=== PATIENT | male | born 1940 | race Caucasian/White ===

== ENCOUNTER 2016-09-27 09:52 | Observation (INO) | payer MEDICARE, BC ==
[2016-09-27] MEDS ORDERED: Pantoprazole IV* 40 MG IV ONE (10:19)
[2016-09-27 10:42] LABS: Hematocrit 45 % (42-52); Hemoglobin 14.8 g/dl (14.0-18.0); Mean Corpuscular HGB Conc 33 g/dl (31-36); Mean Corpuscular Hemoglobin 31 pg (27-31); Mean Corpuscular Volume 93 fL (80-94); Mean Platelet Volume 8 um3 (7.4-10.4); Red Blood Count 4.84 10^6/ul (4.0-5.4); Red Cell Distribution Width 14 % (10.5-15); White Blood Count 7.2 10^3/ul (3.5-10.8)
[2016-09-27 10:57] LABS: Albumin 3.8 g/dL (3.2-5.2); BUN/Creatinine Ratio 27.8 (8-20); C Reactive Protein 3.15 mg/L (< 5.00); Calcium 9.2 mg/dL (8.6-10.3); EGFR African American 122.3 (>60); EGFR Non-African American 95.1 (>60); Globulin 3.4 g/dL (2-4); Potassium 4.2 mmol/L (3.5-5.0); Total Protein 7.2 g/dL (6.4-8.9)
[2016-09-27] MEDS: NS 0.9% 1000 ML* 1,000 ML IV SCH ×3 (11:10→23:45)
--- NOTE | 2016-09-27 12:11 | ED ---
Jennifer Hatfield Matthew, scribed for Billy Zambrano MD on 09/27/16 at 1023 . GI/ HPI - HPI Summary HPI Summary: A 76 y/o male presents to the ED for rectal bleeding that started yesterday at 14:00. The patient went to eat after the first episode and had another bout of blood in the stool. Throughout the tonight, he had three episodes and another this morning. The BM is described as dark red w/o stool. He denies abdominal pain, fever, chills, lightheadedness, SOB, and urinary symptoms. He is currently on Coumadin. - History of Current Complaint Chief Complaint: EDGIBleed Time Seen by Provider: 09/27/16 10:09 Stated Complaint: RECTAL BLEEDING Hx Obtained From: Patient Onset/Duration: Started Days Ago, Atraumatic, Still Present Timing: Constant Severity: Moderate Current Severity: Moderate Vaginal Bleeding Description: Dark Red Pain Intensity: 0 Associated Signs and Symptoms: Positive: Blood w/Stool. Negative: Fever, Chills , Lightheadedness, Abdominal Pain, UTI Symptoms - Allergy/Home Medications Allergies/Adverse Reactions: Allergies Allergy/AdvReac Type Severity Reaction Status Date / Time No Known Allergies Allergy Verified 08/16/15 09:23 PMH/Surg Hx/FS Hx/Imm Hx Endocrine/Hematology History: Reports: Hx Anticoagulant Therapy, Hx Diabetes - II Denies: Hx Thyroid Disease Cardiovascular History: Reports: Hx Angina, Hx Cardiac Arrest, Hx Coronary Artery Disease, Hx Deep Vein Thrombosis, Hx Hypertension Denies: Hx Pacemaker/ICD Respiratory History: Denies: Hx Asthma, Hx Chronic Obstructive Pulmonary Disease (COPD) GI History: Reports: Other GI Disorders - POLYP History: Denies: Hx Renal Disease Musculoskeletal History: Comment Only: Other Musculoskeletal History - HIP REPLACEMENT, NECK INJURY Sensory History: Reports: Hx Contacts or Glasses, Hx Vision Problem, Hx Hearing Aid - DOESN'T WEAR Opthamlomology History: Reports: Hx Contacts or Glasses, Hx Vision Problem Neurological History: Denies: Hx Dementia, Hx Seizures Psychiatric History: Denies: Hx Panic Disorder, Hx Substance Abuse - Surgical History Surgery Procedure, Year, and Place: 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 CATARACTS WITH LENS TRANSPLANT;. RONAK FILTER SURGERY( 1.5 T ONLY);. PROSTATE;. BILATERAL HIPS REPLACEMENT;. 2 KNEE SURGERYS;. RIGHT ARM (UMBRELLA) FOR CLOT, HEART CATHS/ANGIOS (NO STENTS); Hx Anesthesia Reactions: No - Immunization History Date of Tetanus Vaccine: Unknown Date of Influenza Vaccine: Fall 2014 Infectious Disease History: No Infectious Disease History: Reports: Hx of Known/Suspected MRSA Denies: Hx Clostridium Difficile, Hx Hepatitis, Hx Human Immunodeficiency Virus (HIV), Hx Shingles, Hx Tuberculosis, Traveled Outside the [place] in Last 30 Days - Family History Family History: No FHx of [place] - Social History Alcohol Use: None Substance Use Type: Reports: None Smoking Status (MU): Never Smoked Tobacco Have You Smoked in the Last Year: No Review of Systems Constitutional: Negative Negative: Fever, Chills Eyes: Negative ENT: Negative Cardiovascular: Negative Respiratory: Negative Negative: Shortness Of Breath Gastrointestinal: Negative Negative: Abdominal Pain Genitourinary: Other - blood w/ stool - dark red Musculoskeletal: Negative Skin: Negative Neurological: Negative Psychological: Normal All Other Systems Reviewed And Are Negative: Yes Physical Exam Triage Information Reviewed: Yes Vital Signs On Initial Exam: Initial Vitals Temp Pulse Resp BP Pulse Ox 99.2 F 91 20 162/81 97 09/27/16 09:53 09/27/16 09:53 09/27/16 09:53 09/27/16 09:53 09/27/16 09:53 Vital Signs Reviewed: Yes Appearance: Positive: Well-Appearing, No Pain Distress Skin: Positive: Warm, Skin Color Reflects Adequate Perfusion, Dry Head/Face: Positive: Normal Head/Face Inspection ENT: Positive: Normal ENT inspection Neck: Positive: Supple, Nontender Cardiovascular: Positive: RRR Abdomen Description: Positive: Nontender, Soft Musculoskeletal: Positive: Normal, Strength/ROM Intact Neurological: Positive: Normal, Sensory/Motor Intact, Alert, Oriented to Person Place, Time Psychiatric: Positive: Affect/Mood Appropriate Diagnostics - Vital Signs Vital Signs Temp Pulse Resp BP Pulse Ox 09/27/16 09:53 99.2 F 91 20 162/81 97 - Laboratory Lab Results: Lab Results 09/27/16 09/27/16 09/27/16 Range/Units 10:30 10:30 10:30 WBC 7.2 (3.5-10.8) 10^3/ul RBC 4.84 (4.0-5.4) 10^6/ul Hgb 14.8 (14.0-18.0) g/dl Hct 45 (42-52) % MCV 93 (80-94) fL MCH 31 (27-31) pg MCHC 33 (31-36) g/dl RDW 14 (10.5-15) % Plt Count 167 (150-450) 10^3/ul MPV 8 (7.4-10.4) um3 Neut % (Auto) 64.3 (38-83) % Lymph % (Auto) 24.8 L (25-47) % Turner % (Auto) 7.9 (1-9) % Eos % (Auto) 2.2 (0-6) % Baso % (Auto) 0.8 (0-2) % Absolute Neuts (auto) 4.6 (1.5-7.7) 10^3/ul Absolute Lymphs (auto) 1.8 (1.0-4.8) 10^3/ul Absolute Monos (auto) 0.6 (0-0.8) 10^3/ul Absolute Eos (auto) 0.2 (0-0.6) 10^3/ul Absolute Basos (auto) 0.1 (0-0.2) 10^3/ul Absolute Nucleated RBC 0 10^3/ul Nucleated RBC % 0 INR (Anticoag Therapy) 1.81 H (0.89-1.11) APTT 36.7 H (26.0-36.3) seconds Sodium 136 (133-145) mmol/L Potassium 4.2 (3.5-5.0) mmol/L Chloride 103 (101-111) mmol/L Carbon Dioxide 28 (22-32) mmol/L Anion Gap 5 (2-11) mmol/L BUN 22 (6-24) mg/dL Creatinine 0.79 (0.67-1.17) mg/dL Est GFR ( Amer) 122.3 (>60) Est GFR (Non-Af Amer) 95.1 (>60) BUN/Creatinine Ratio 27.8 H (8-20) Glucose 113 H (70-100) mg/dL Lactic Acid (0.5-2.0) mmol/L Calcium 9.2 (8.6-10.3) mg/dL Total Bilirubin 1.00 (0.2-1.0) mg/dL AST 18 (13-39) U/L ALT 11 (7-52) U/L Alkaline Phosphatase 67 (34-104) U/L C-Reactive Protein 3.15 (< 5.00) mg/L B-Natriuretic Peptide ( - 100) pg/mL Total Protein 7.2 (6.4-8.9) g/dL Albumin 3.8 (3.2-5.2) g/dL Globulin 3.4 (2-4) g/dL Albumin/Globulin Ratio 1.1 (1-3) Lipase 29 (11.0-82.0) U/L Blood Type Antibody Screen 09/27/16 09/27/16 09/27/16 Range/Units 10:30 10:30 10:30 WBC (3.5-10.8) 10^3/ul RBC (4.0-5.4) 10^6/ul Hgb (14.0-18.0) g/dl Hct (42-52) % MCV (80-94) fL MCH (27-31) pg MCHC (31-36) g/dl RDW (10.5-15) % Plt Count (150-450) 10^3/ul MPV (7.4-10.4) um3 Neut % (Auto) (38-83) % Lymph % (Auto) (25-47) % Turner % (Auto) (1-9) % Eos % (Auto) (0-6) % Baso % (Auto) (0-2) % Absolute Neuts (auto) (1.5-7.7) 10^3/ul Absolute Lymphs (auto) (1.0-4.8) 10^3/ul Absolute Monos (auto) (0-0.8) 10^3/ul Absolute Eos (auto) (0-0.6) 10^3/ul Absolute Basos (auto) (0-0.2) 10^3/ul Absolute Nucleated RBC 10^3/ul Nucleated RBC % INR (Anticoag Therapy) (0.89-1.11) APTT (26.0-36.3) seconds Sodium (133-145) mmol/L Potassium (3.5-5.0) mmol/L Chloride (101-111) mmol/L Carbon Dioxide (22-32) mmol/L Anion Gap (2-11) mmol/L BUN (6-24) mg/dL Creatinine (0.67-1.17) mg/dL Est GFR ( Amer) (>60) Est GFR (Non-Af Amer) (>60) BUN/Creatinine Ratio (8-20) Glucose (70-100) mg/dL Lactic Acid 1.2 (0.5-2.0) mmol/L Calcium (8.6-10.3) mg/dL Total Bilirubin (0.2-1.0) mg/dL AST (13-39) U/L ALT (7-52) U/L Alkaline Phosphatase (34-104) U/L C-Reactive Protein (< 5.00) mg/L B-Natriuretic Peptide 155 H ( - 100) pg/mL Total Protein (6.4-8.9) g/dL Albumin (3.2-5.2) g/dL Globulin (2-4) g/dL Albumin/Globulin Ratio (1-3) Lipase (11.0-82.0) U/L Blood Type A Negative Antibody Screen Negative Result Diagrams: 09/27/16 10:30 09/27/16 10:30 Lab Statement: Any lab studies that have been ordered have been reviewed, and results considered in the medical decision making process. GIGU Course/Dx - Course Assessment/Plan: ADMIT STABLE HOSPITALIST. - Diagnoses Provider Diagnoses: GI bleed, Elevated INR - Physician Notifications Discussed Care Of Patient With: Dr. Dugan (Hospitalist) at 11:15 -- Notified of patient's history and will admit the patient. Discharge - Discharge Plan Condition: Stable Disposition: ADMITTED TO [facility] Referrals: Casandra Dixon MD [Primary Care Provider] - The documentation as recorded by the Jennifer garza Matthew accurately reflects the service I personally performed and the decisions made by , Billy Zambrano MD.
[2016-09-27] MEDS ORDERED: Aspirin Low Dose CHEW TAB* 81 MG ONE (12:18)
[2016-09-27] MEDS ORDERED: Sotalol TAB* 80 MG ONE (12:18)
[2016-09-27] MEDS: Aspirin Low Dose CHEW TAB* 81 MG PO SCH (12:21)
[2016-09-27] MEDS: Sotalol TAB* 80 MG PO SCH ×2 (12:21→21:26)
--- NOTE | 2016-09-27 12:48 | ADMNOTE ---
Subjective Date of Service: 09/27/16 Interval History: ADMISSION HISTORY AND PHYSICAL EXAM: Allergies Allergy/AdvReac Type Severity Reaction Status Date / Time No Known Allergies Allergy Verified 08/16/15 09:23 Home Medications Medication Instructions Recorded Confirmed Type Aspirin Low Dose CHEW TAB* 81 mg PO DAILY 11/30/12 09/27/16 History [Aspirin Low Dose TAB*] Simvastatin TAB(NF) [Zocor 20 MG 40 mg PO BEDTIME 11/30/12 09/27/16 History (NF)] Sotalol TAB* [Betapace TAB*] 80 mg PO BID 11/30/12 09/27/16 History Warfarin TAB(*) [Coumadin TAB(*)] 7.5 mg PO MOWEFR 11/30/12 09/27/16 History metFORMIN* [Glucophage*] 500 mg PO BID 11/30/12 09/27/16 History Acetaminophen [Tylenol Extra 500 mg PO Q6H PRN 10/04/13 09/27/16 History Strength] Sildenafil (NF) [Viagra (NF)] 50 mg PO ONCE PRN 09/27/16 09/27/16 History Valsartan TAB* [Diovan TAB*] 160 mg PO DAILY 09/27/16 09/27/16 History Warfarin TAB(*) [Coumadin TAB(*)] 5 mg PO TUTH 09/27/16 09/27/16 History HPI: Patient was in his usual state of health until yesterday AM. He went to a pancake breakfast at the fire station. After that he had 6 loose BM's with blood through the rest of the day. He has not had a BM Review of Systems - Measurements Intake and Output: Intake and Output Last 24 Hours 09/25/16 09/26/16 09/27/16 09/28/16 06:59 06:59 06:59 06:59 Weight 227 lb Objective Active Medications: Sodium Chloride (Ns 0.9% 1000 Ml*) 1,000 mls @ 150 mls/hr IV PER RATE [facility] Last Admin: 09/27/16 11:10 Dose: 150 mls/hr Vital Signs 09/27/16 09/27/16 09:53 10:18 Temperature 99.2 F Pulse Rate 91 96 Respiratory 20 Rate Blood Pressure 162/81 (mmHg) O2 Sat by Pulse 97 94 Oximetry Result Diagrams: 09/27/16 10:30 09/27/16 10:30 Assess/Plan/Problems-Billing Assessment:
--- NOTE | 2016-09-27 12:54 | ADMNOTE ---
Subjective Date of Service: 09/27/16 Interval History: ADMISSION HISTORY AND PHYSICAL EXAM: Allergies Allergy/AdvReac Type Severity Reaction Status Date / Time No Known Allergies Allergy Verified 08/16/15 09:23 Home Medications Medication Instructions Recorded Confirmed Type Aspirin Low Dose CHEW TAB* 81 mg PO DAILY 11/30/12 09/27/16 History [Aspirin Low Dose TAB*] Simvastatin TAB(NF) [Zocor 20 MG 40 mg PO BEDTIME 11/30/12 09/27/16 History (NF)] Sotalol TAB* [Betapace TAB*] 80 mg PO BID 11/30/12 09/27/16 History Warfarin TAB(*) [Coumadin TAB(*)] 7.5 mg PO MOWEFR 11/30/12 09/27/16 History metFORMIN* [Glucophage*] 500 mg PO BID 11/30/12 09/27/16 History Acetaminophen [Tylenol Extra 500 mg PO Q6H PRN 10/04/13 09/27/16 History Strength] Sildenafil (NF) [Viagra (NF)] 50 mg PO ONCE PRN 09/27/16 09/27/16 History Valsartan TAB* [Diovan TAB*] 160 mg PO DAILY 09/27/16 09/27/16 History Warfarin TAB(*) [Coumadin TAB(*)] 5 mg PO TUTH 09/27/16 09/27/16 History HPI: Patient was in his usual state of health until yesterday AM. He went to a pancake breakfast at the [employer] station. After that he had 6 loose BM's with blood through the rest of the day. He has not had a BM so far today. He did not eat breakfast or take his AM meds today. He takes warfarin in the evening. Family History: Findings - Unremarkable. Social History: Findings - Quit smoking many years ago. No alcohol abuse. Lives with his who is his SDM. 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 Hx atrial fib, CAD, DVT, HTN, DM Review of Systems - Measurements Intake and Output: Intake and Output Last 24 Hours 09/25/16 09/26/16 09/27/16 09/28/16 06:59 06:59 06:59 06:59 Weight 227 lb - Review of Systems Constitutional Symptoms: Negative: Weight Gain, Weight Loss, Weakness, Fatigue, Fever, Night Sweats, Unexplained Falls, Other Dermatology: Positive: Normal HEENT: Positive: Normal Eyes: Positive: Normal Thyroid: Positive: Normal Pulmonary: Positive: Normal Cardiology: Positive: Normal Gastroenterology: Positive: Blood in Stools Genital - Urinary: Positive: Normal Musculoskeletal: Negative: Joint Pain, Joint Stiffness, Arthritis, Osteoporosis, Low Back Pain , Sciatica, Joint Deformities, Kyphoscoliosis, Other Endocrinology: Positive: Diabetes Mellitus Hematologic/Lymphatic: Negative: Anemia, Easy Brusing, Hx Leukemia, Hx Lymphoma, Use of Anticoagulant, Use of Antiplatelet Drugs, Other Neurology: Positive: Normal Psychiatry: Positive: Normal Allergic/Immunologic: Negative: Hx Anaphylaxis, Hx Angioedema, Hx Environmental, Hx Seasonal, Athsma, Hx HIV, Immunocompromise, Swollen Glands LymphNodes, Other Objective Active Medications: Aspirin (Aspirin Low Dose Tab*) 81 mg PO DAILY [facility] Last Admin: 09/27/16 12:21 Dose: 81 mg Atorvastatin Calcium (Lipitor*) 20 mg PO BEDTIME [facility] Sodium Chloride (Ns 0.9% 1000 Ml*) 1,000 mls @ 150 mls/hr IV PER RATE [facility] Last Admin: 09/27/16 11:10 Dose: 150 mls/hr Sotalol HCl (Betapace Tab*) 80 mg PO BID [facility] Last Admin: 09/27/16 12:21 Dose: 80 mg Valsartan (Diovan Tab*) 160 mg PO DAILY [facility] Warfarin Sodium (Coumadin Tab(*)) 5 mg PO TuTh@1700 [facility] PRN Reason: Protocol Warfarin Sodium (Coumadin Tab(*)) 7.5 mg PO MoWeFr@1700 [facility] PRN Reason: Protocol Vital Signs 09/27/16 09/27/16 09/27/16 09:53 10:18 10:30 Temperature 99.2 F Pulse Rate 91 96 Respiratory 20 Rate Blood Pressure 162/81 120/73 (mmHg) O2 Sat by Pulse 97 94 Oximetry 09/27/16 09/27/16 09/27/16 11:00 11:30 12:00 Temperature Pulse Rate 98 90 90 Respiratory Rate Blood Pressure 144/96 128/77 155/94 (mmHg) O2 Sat by Pulse 96 95 96 Oximetry Oxygen Devices in Use Now: None Appearance: Alert, supine in bed. In good spirits. Looks comfortable. Eyes: No Scleral Icterus Ears/Nose/Mouth/Throat: Clear Oropharnyx, Mucous Membranes Moist Neck: NL Appearance and Movements; NL JVP, No Thyroid Enlargement, Masses Respiratory: Symmetrical Chest Expansion and Respiratory Effort, Clear to Auscultation, Clear to Percussion Cardiovascular: NL Sounds; No Murmurs; No JVD, No Edema, - - irreg Abdominal: NL Sounds; No Tenderness; No Distention, No Hepatosplenomegaly, - Extremities: No Edema, No Clubbing, Cyanosis, - Skin: No Rash or Ulcers, No Nodules or Sclerosis, - Result Diagrams: 09/27/16 10:30 09/27/16 10:30 Additional Lab and Data: Lab Results 09/27/16 09/27/16 09/27/16 Range/Units 10:30 10:30 10:30 WBC 7.2 (3.5-10.8) 10^3/ul RBC 4.84 (4.0-5.4) 10^6/ul Hgb 14.8 (14.0-18.0) g/dl Hct 45 (42-52) % MCV 93 (80-94) fL MCH 31 (27-31) pg MCHC 33 (31-36) g/dl RDW 14 (10.5-15) % Plt Count 167 (150-450) 10^3/ul MPV 8 (7.4-10.4) um3 Neut % (Auto) 64.3 (38-83) % Lymph % (Auto) 24.8 L (25-47) % Caldwell % (Auto) 7.9 (1-9) % Eos % (Auto) 2.2 (0-6) % Baso % (Auto) 0.8 (0-2) % Absolute Neuts (auto) 4.6 (1.5-7.7) 10^3/ul Absolute Lymphs (auto) 1.8 (1.0-4.8) 10^3/ul Absolute Monos (auto) 0.6 (0-0.8) 10^3/ul Absolute Eos (auto) 0.2 (0-0.6) 10^3/ul Absolute Basos (auto) 0.1 (0-0.2) 10^3/ul Absolute Nucleated RBC 0 10^3/ul Nucleated RBC % 0 INR (Anticoag Therapy) 1.81 H (0.89-1.11) APTT 36.7 H (26.0-36.3) seconds Sodium 136 (133-145) mmol/L Potassium 4.2 (3.5-5.0) mmol/L Chloride 103 (101-111) mmol/L Carbon Dioxide 28 (22-32) mmol/L Anion Gap 5 (2-11) mmol/L BUN 22 (6-24) mg/dL Creatinine 0.79 (0.67-1.17) mg/dL Est GFR ( Amer) 122.3 (>60) Est GFR (Non-Af Amer) 95.1 (>60) BUN/Creatinine Ratio 27.8 H (8-20) Glucose 113 H (70-100) mg/dL Lactic Acid (0.5-2.0) mmol/L Calcium 9.2 (8.6-10.3) mg/dL Total Bilirubin 1.00 (0.2-1.0) mg/dL AST 18 (13-39) U/L ALT 11 (7-52) U/L Alkaline Phosphatase 67 (34-104) U/L C-Reactive Protein 3.15 (< 5.00) mg/L B-Natriuretic Peptide ( - 100) pg/mL Total Protein 7.2 (6.4-8.9) g/dL Albumin 3.8 (3.2-5.2) g/dL Globulin 3.4 (2-4) g/dL Albumin/Globulin Ratio 1.1 (1-3) Lipase 29 (11.0-82.0) U/L Blood Type Antibody Screen 09/27/16 09/27/16 09/27/16 Range/Units 10:30 10:30 10:30 WBC (3.5-10.8) 10^3/ul RBC (4.0-5.4) 10^6/ul Hgb (14.0-18.0) g/dl Hct (42-52) % MCV (80-94) fL MCH (27-31) pg MCHC (31-36) g/dl RDW (10.5-15) % Plt Count (150-450) 10^3/ul MPV (7.4-10.4) um3 Neut % (Auto) (38-83) % Lymph % (Auto) (25-47) % [place]dwell % (Auto) (1-9) % Eos % (Auto) (0-6) % Baso % (Auto) (0-2) % Absolute Neuts (auto) (1.5-7.7) 10^3/ul Absolute Lymphs (auto) (1.0-4.8) 10^3/ul Absolute Monos (auto) (0-0.8) 10^3/ul Absolute Eos (auto) (0-0.6) 10^3/ul Absolute Basos (auto) (0-0.2) 10^3/ul Absolute Nucleated RBC 10^3/ul Nucleated RBC % INR (Anticoag Therapy) (0.89-1.11) APTT (26.0-36.3) seconds Sodium (133-145) mmol/L Potassium (3.5-5.0) mmol/L Chloride (101-111) mmol/L Carbon Dioxide (22-32) mmol/L Anion Gap (2-11) mmol/L BUN (6-24) mg/dL Creatinine (0.67-1.17) mg/dL Est GFR ( Amer) (>60) Est GFR (Non-Af Amer) (>60) BUN/Creatinine Ratio (8-20) Glucose (70-100) mg/dL Lactic Acid 1.2 (0.5-2.0) mmol/L Calcium (8.6-10.3) mg/dL Total Bilirubin (0.2-1.0) mg/dL AST (13-39) U/L ALT (7-52) U/L Alkaline Phosphatase (34-104) U/L C-Reactive Protein (< 5.00) mg/L B-Natriuretic Peptide 155 H ( - 100) pg/mL Total Protein (6.4-8.9) g/dL Albumin (3.2-5.2) g/dL Globulin (2-4) g/dL Albumin/Globulin Ratio (1-3) Lipase (11.0-82.0) U/L Blood Type A Negative Antibody Screen Negative Assess/Plan/Problems-Billing Assessment: - Patient Problems (1) Rectal bleeding Current Visit: Yes Status: Acute Code(s): K62.5 - HEMORRHAGE OF ANUS AND RECTUM SNOMED Code(s): 84851458 Comment: Likely low volume of blood loss. Had colonoscopy 02/19/11, consider repeat as outpt. CBC 1500 hrs 09/27, 0600 09/28. Continue ASA, warfarin. (2) Atrial fibrillation Current Visit: Yes Status: Acute Code(s): I48.91 - UNSPECIFIED ATRIAL FIBRILLATION SNOMED Code(s): 01367124 Comment: Continue sotalol, catch up today with both doses. Continue usual dose warfarin. (3) HTN (hypertension) Current Visit: Yes Status: Acute Code(s): I10 - ESSENTIAL (PRIMARY) HYPERTENSION SNOMED Code(s): 84806821 Comment: Continue valsartan, sotalol. (4) CAD (coronary artery disease) Current Visit: Yes Status: Acute Code(s): I25.10 - ATHSCL HEART DISEASE OF [place] CORONARY ARTERY W/O ANG PCTRS SNOMED Code(s): 14241593 Comment: Continue ASA, statin.
[2016-09-27 16:32] LABS: Hematocrit 44 % (42-52); Hemoglobin 14.3 g/dl (14.0-18.0); Mean Corpuscular HGB Conc 33 g/dl (31-36); Mean Corpuscular Hemoglobin 31 pg (27-31); Mean Corpuscular Volume 94 fL (80-94); Mean Platelet Volume 9 um3 (7.4-10.4); Red Blood Count 4.63 10^6/ul (4.0-5.4); Red Cell Distribution Width 14 % (10.5-15); White Blood Count 7.2 10^3/ul (3.5-10.8)
[2016-09-27] MEDS ORDERED: Warfarin TAB(*) 5 MG PO SCH (17:00)
[2016-09-27] MEDS ORDERED: Atorvastatin* 20 MG TAB PO SCH (21:00)
[2016-09-28 04:21] LABS: Urine Bilirubin Negative (Negative); Urine Glucose 1+(50 mg/dL) (Negative); Urine Nitrite Negative (Negative)
[2016-09-28] MEDS: NS 0.9% 1000 ML* 1,000 ML IV SCH (06:27)
[2016-09-28 06:42] LABS: Hematocrit 39 % (42-52); Hemoglobin 12.9 g/dl (14.0-18.0); Mean Corpuscular HGB Conc 33 g/dl (31-36); Mean Corpuscular Hemoglobin 31 pg (27-31); Mean Corpuscular Volume 92 fL (80-94); Mean Platelet Volume 9 um3 (7.4-10.4); Red Blood Count 4.18 10^6/ul (4.0-5.4); Red Cell Distribution Width 14 % (10.5-15); White Blood Count 6.5 10^3/ul (3.5-10.8)
[2016-09-28 08:50] VITALS: BP 122/77
--- NOTE | 2016-09-28 08:50 | DCNOTE ---
Subjective Date of Service: 09/28/16 Interval History: BM yesterday was brown. None today so far. No c/o, anxious to go home. Family History: Findings - Unremarkable. Social History: Findings - Quit smoking many years ago. No alcohol abuse. Lives with his who is his SDM. 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 Hx atrial fib, CAD, DVT, HTN, DM Objective Active Medications: Aspirin (Aspirin Low Dose Tab*) 81 mg PO DAILY [facility] Last Admin: 09/27/16 12:21 Dose: 81 mg Atorvastatin Calcium (Lipitor*) 20 mg PO BEDTIME [facility] Last Admin: 09/27/16 21:30 Dose: 20 mg Sodium Chloride (Ns 0.9% 1000 Ml*) 1,000 mls @ 150 mls/hr IV PER RATE [facility] Last Admin: 09/28/16 06:27 Dose: 150 mls/hr Sotalol HCl (Betapace Tab*) 80 mg PO BID [facility] Last Admin: 09/27/16 21:26 Dose: Not Given Valsartan (Diovan Tab*) 160 mg PO DAILY [facility] Warfarin Sodium (Coumadin Tab(*)) 5 mg PO TuTh@1700 [facility] PRN Reason: Protocol Warfarin Sodium (Coumadin Tab(*)) 7.5 mg PO MoWeFr@1700 [facility] PRN Reason: Protocol Last Admin: 09/27/16 17:33 Dose: 7.5 mg Vital Signs 09/27/16 09/27/16 09/27/16 13:00 13:30 15:05 Temperature 97.8 F Pulse Rate 85 85 58 Respiratory 18 Rate Blood Pressure 124/94 130/86 105/71 (mmHg) O2 Sat by Pulse 96 94 99 Oximetry 09/27/16 09/27/16 09/28/16 15:22 19:17 00:28 Temperature 97.3 F 98.1 F 98.1 F Pulse Rate 69 49 69 Respiratory 16 16 16 Rate Blood Pressure 84/62 100/56 85/43 (mmHg) O2 Sat by Pulse 96 97 96 Oximetry 09/28/16 09/28/16 04:04 08:00 Temperature 97.8 F Pulse Rate 70 Respiratory 16 16 Rate Blood Pressure 120/61 (mmHg) O2 Sat by Pulse 98 Oximetry Oxygen Devices in Use Now: None Appearance: Alert, in a chair. In good spirits. Looks comfortable. Eyes: No Scleral Icterus Abdominal: - - Rectal exam: No external lesions. No palpable mass. Brown stool on glove tip. Extremities: No Edema, No Clubbing, Cyanosis, - Skin: No Rash or Ulcers, No Nodules or Sclerosis, - Neurological: Alert and Oriented x 3, NL Sensation Result Diagrams: 09/28/16 06:06 09/27/16 10:30 Additional Lab and Data: Lab Results 09/27/16 09/27/16 09/27/16 Range/Units 10:30 10:30 10:30 WBC 7.2 (3.5-10.8) 10^3/ul RBC 4.84 (4.0-5.4) 10^6/ul Hgb 14.8 (14.0-18.0) g/dl Hct 45 (42-52) % MCV 93 (80-94) fL MCH 31 (27-31) pg MCHC 33 (31-36) g/dl RDW 14 (10.5-15) % Plt Count 167 (150-450) 10^3/ul MPV 8 (7.4-10.4) um3 Neut % (Auto) 64.3 (38-83) % Lymph % (Auto) 24.8 L (25-47) % Hendricks % (Auto) 7.9 (1-9) % Eos % (Auto) 2.2 (0-6) % Baso % (Auto) 0.8 (0-2) % Absolute Neuts (auto) 4.6 (1.5-7.7) 10^3/ul Absolute Lymphs (auto) 1.8 (1.0-4.8) 10^3/ul Absolute Monos (auto) 0.6 (0-0.8) 10^3/ul Absolute Eos (auto) 0.2 (0-0.6) 10^3/ul Absolute Basos (auto) 0.1 (0-0.2) 10^3/ul Absolute Nucleated RBC 0 10^3/ul Nucleated RBC % 0 INR (Anticoag Therapy) 1.81 H (0.89-1.11) APTT 36.7 H (26.0-36.3) seconds Sodium 136 (133-145) mmol/L Potassium 4.2 (3.5-5.0) mmol/L Chloride 103 (101-111) mmol/L Carbon Dioxide 28 (22-32) mmol/L Anion Gap 5 (2-11) mmol/L BUN 22 (6-24) mg/dL Creatinine 0.79 (0.67-1.17) mg/dL Est GFR ( Amer) 122.3 (>60) Est GFR (Non-Af Amer) 95.1 (>60) BUN/Creatinine Ratio 27.8 H (8-20) Glucose 113 H (70-100) mg/dL Lactic Acid (0.5-2.0) mmol/L Calcium 9.2 (8.6-10.3) mg/dL Total Bilirubin 1.00 (0.2-1.0) mg/dL AST 18 (13-39) U/L ALT 11 (7-52) U/L Alkaline Phosphatase 67 (34-104) U/L C-Reactive Protein 3.15 (< 5.00) mg/L B-Natriuretic Peptide ( - 100) pg/mL Total Protein 7.2 (6.4-8.9) g/dL Albumin 3.8 (3.2-5.2) g/dL Globulin 3.4 (2-4) g/dL Albumin/Globulin Ratio 1.1 (1-3) Lipase 29 (11.0-82.0) U/L Blood Type Antibody Screen 09/27/16 09/27/16 09/27/16 Range/Units 10:30 10:30 10:30 WBC (3.5-10.8) 10^3/ul RBC (4.0-5.4) 10^6/ul Hgb (14.0-18.0) g/dl Hct (42-52) % MCV (80-94) fL MCH (27-31) pg MCHC (31-36) g/dl RDW (10.5-15) % Plt Count (150-450) 10^3/ul MPV (7.4-10.4) um3 Neut % (Auto) (38-83) % Lymph % (Auto) (25-47) % Hendricks % (Auto) (1-9) % Eos % (Auto) (0-6) % Baso % (Auto) (0-2) % Absolute Neuts (auto) (1.5-7.7) 10^3/ul Absolute Lymphs (auto) (1.0-4.8) 10^3/ul Absolute Monos (auto) (0-0.8) 10^3/ul Absolute Eos (auto) (0-0.6) 10^3/ul Absolute Basos (auto) (0-0.2) 10^3/ul Absolute Nucleated RBC 10^3/ul Nucleated RBC % INR (Anticoag Therapy) (0.89-1.11) APTT (26.0-36.3) seconds Sodium (133-145) mmol/L Potassium (3.5-5.0) mmol/L Chloride (101-111) mmol/L Carbon Dioxide (22-32) mmol/L Anion Gap (2-11) mmol/L BUN (6-24) mg/dL Creatinine (0.67-1.17) mg/dL Est GFR ( Amer) (>60) Est GFR (Non-Af Amer) (>60) BUN/Creatinine Ratio (8-20) Glucose (70-100) mg/dL Lactic Acid 1.2 (0.5-2.0) mmol/L Calcium (8.6-10.3) mg/dL Total Bilirubin (0.2-1.0) mg/dL AST (13-39) U/L ALT (7-52) U/L Alkaline Phosphatase (34-104) U/L C-Reactive Protein (< 5.00) mg/L B-Natriuretic Peptide 155 H ( - 100) pg/mL Total Protein (6.4-8.9) g/dL Albumin (3.2-5.2) g/dL Globulin (2-4) g/dL Albumin/Globulin Ratio (1-3) Lipase (11.0-82.0) U/L Blood Type A Negative Antibody Screen Negative Microbiology and Other Data: Microbiology 09/27/16 14:32 Stool Gross Appearance - Final Stool Stool Occult Blood (GORDON) - Final Assess/Plan/Problems-Billing Assessment: - Patient Problems (1) Rectal bleeding Current Visit: Yes Status: Acute Code(s): K62.5 - HEMORRHAGE OF ANUS AND RECTUM SNOMED Code(s): 62503371 Comment: Likely low volume of blood loss. Had colonoscopy 02/19/11, consider repeat as outpt. Decrease in hgb c/w fluid administration. Continue ASA, warfarin. Fup Dr. Dixon. Pt advised to discuss outpt colonoscopy with Dr. Maharaj (2) Atrial fibrillation Current Visit: Yes Status: Acute Code(s): I48.91 - UNSPECIFIED ATRIAL FIBRILLATION SNOMED Code(s): 79937383 Comment: Continue sotalol, catch up today with both doses. Continue usual dose warfarin. (3) HTN (hypertension) Current Visit: Yes Status: Acute Code(s): I10 - ESSENTIAL (PRIMARY) HYPERTENSION SNOMED Code(s): 85554911 Comment: Continue valsartan, sotalol. (4) CAD (coronary artery disease) Current Visit: Yes Status: Acute Code(s): I25.10 - ATHSCL HEART DISEASE OF [place] CORONARY ARTERY W/O ANG PCTRS SNOMED Code(s): 51085359 Comment: Continue ASA, statin. Status and Disposition: Discharge now. Fup Dr. Dixon.
--- NOTE | 2016-09-28 08:57 | DCNOTE ---
Subjective Date of Service: 09/28/16 Interval History: This is an addendum to the earlier noted today. Family History: Findings - Unremarkable. Social History: Findings - Quit smoking many years ago. No alcohol abuse. Lives with his who is his SDM. 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 Hx atrial fib, CAD, DVT, HTN, DM Objective Active Medications: Aspirin (Aspirin Low Dose Tab*) 81 mg PO DAILY [facility] Last Admin: 09/27/16 12:21 Dose: 81 mg Atorvastatin Calcium (Lipitor*) 20 mg PO BEDTIME [facility] Last Admin: 09/27/16 21:30 Dose: 20 mg Sodium Chloride (Ns 0.9% 1000 Ml*) 1,000 mls @ 150 mls/hr IV PER RATE [facility] Last Admin: 09/28/16 06:27 Dose: 150 mls/hr Sotalol HCl (Betapace Tab*) 80 mg PO BID [facility] Last Admin: 09/27/16 21:26 Dose: Not Given Valsartan (Diovan Tab*) 160 mg PO DAILY [facility] Warfarin Sodium (Coumadin Tab(*)) 5 mg PO TuTh@1700 [facility] PRN Reason: Protocol Warfarin Sodium (Coumadin Tab(*)) 7.5 mg PO MoWeFr@1700 [facility] PRN Reason: Protocol Last Admin: 09/27/16 17:33 Dose: 7.5 mg Vital Signs 09/27/16 09/27/16 09/27/16 13:00 13:30 15:05 Temperature 97.8 F Pulse Rate 85 85 58 Respiratory 18 Rate Blood Pressure 124/94 130/86 105/71 (mmHg) O2 Sat by Pulse 96 94 99 Oximetry 09/27/16 09/27/16 09/28/16 15:22 19:17 00:28 Temperature 97.3 F 98.1 F 98.1 F Pulse Rate 69 49 69 Respiratory 16 16 16 Rate Blood Pressure 84/62 100/56 85/43 (mmHg) O2 Sat by Pulse 96 97 96 Oximetry 09/28/16 09/28/16 09/28/16 04:04 07:41 08:00 Temperature 97.8 F 98.1 F Pulse Rate 70 86 Respiratory 16 16 16 Rate Blood Pressure 120/61 122/77 (mmHg) O2 Sat by Pulse 98 99 Oximetry Oxygen Devices in Use Now: None Result Diagrams: 09/28/16 06:06 09/27/16 10:30 Additional Lab and Data: Lab Results 09/27/16 09/27/16 09/27/16 Range/Units 10:30 10:30 10:30 WBC 7.2 (3.5-10.8) 10^3/ul RBC 4.84 (4.0-5.4) 10^6/ul Hgb 14.8 (14.0-18.0) g/dl Hct 45 (42-52) % MCV 93 (80-94) fL MCH 31 (27-31) pg MCHC 33 (31-36) g/dl RDW 14 (10.5-15) % Plt Count 167 (150-450) 10^3/ul MPV 8 (7.4-10.4) um3 Neut % (Auto) 64.3 (38-83) % Lymph % (Auto) 24.8 L (25-47) % Mathews % (Auto) 7.9 (1-9) % Eos % (Auto) 2.2 (0-6) % Baso % (Auto) 0.8 (0-2) % Absolute Neuts (auto) 4.6 (1.5-7.7) 10^3/ul Absolute Lymphs (auto) 1.8 (1.0-4.8) 10^3/ul Absolute Monos (auto) 0.6 (0-0.8) 10^3/ul Absolute Eos (auto) 0.2 (0-0.6) 10^3/ul Absolute Basos (auto) 0.1 (0-0.2) 10^3/ul Absolute Nucleated RBC 0 10^3/ul Nucleated RBC % 0 INR (Anticoag Therapy) 1.81 H (0.89-1.11) APTT 36.7 H (26.0-36.3) seconds Sodium 136 (133-145) mmol/L Potassium 4.2 (3.5-5.0) mmol/L Chloride 103 (101-111) mmol/L Carbon Dioxide 28 (22-32) mmol/L Anion Gap 5 (2-11) mmol/L BUN 22 (6-24) mg/dL Creatinine 0.79 (0.67-1.17) mg/dL Est GFR ( Amer) 122.3 (>60) Est GFR (Non-Af Amer) 95.1 (>60) BUN/Creatinine Ratio 27.8 H (8-20) Glucose 113 H (70-100) mg/dL Lactic Acid (0.5-2.0) mmol/L Calcium 9.2 (8.6-10.3) mg/dL Total Bilirubin 1.00 (0.2-1.0) mg/dL AST 18 (13-39) U/L ALT 11 (7-52) U/L Alkaline Phosphatase 67 (34-104) U/L C-Reactive Protein 3.15 (< 5.00) mg/L B-Natriuretic Peptide ( - 100) pg/mL Total Protein 7.2 (6.4-8.9) g/dL Albumin 3.8 (3.2-5.2) g/dL Globulin 3.4 (2-4) g/dL Albumin/Globulin Ratio 1.1 (1-3) Lipase 29 (11.0-82.0) U/L Blood Type Antibody Screen 09/27/16 09/27/16 09/27/16 Range/Units 10:30 10:30 10:30 WBC (3.5-10.8) 10^3/ul RBC (4.0-5.4) 10^6/ul Hgb (14.0-18.0) g/dl Hct (42-52) % MCV (80-94) fL MCH (27-31) pg MCHC (31-36) g/dl RDW (10.5-15) % Plt Count (150-450) 10^3/ul MPV (7.4-10.4) um3 Neut % (Auto) (38-83) % Lymph % (Auto) (25-47) % Mathews % (Auto) (1-9) % Eos % (Auto) (0-6) % Baso % (Auto) (0-2) % Absolute Neuts (auto) (1.5-7.7) 10^3/ul Absolute Lymphs (auto) (1.0-4.8) 10^3/ul Absolute Monos (auto) (0-0.8) 10^3/ul Absolute Eos (auto) (0-0.6) 10^3/ul Absolute Basos (auto) (0-0.2) 10^3/ul Absolute Nucleated RBC 10^3/ul Nucleated RBC % INR (Anticoag Therapy) (0.89-1.11) APTT (26.0-36.3) seconds Sodium (133-145) mmol/L Potassium (3.5-5.0) mmol/L Chloride (101-111) mmol/L Carbon Dioxide (22-32) mmol/L Anion Gap (2-11) mmol/L BUN (6-24) mg/dL Creatinine (0.67-1.17) mg/dL Est GFR ( Amer) (>60) Est GFR (Non-Af Amer) (>60) BUN/Creatinine Ratio (8-20) Glucose (70-100) mg/dL Lactic Acid 1.2 (0.5-2.0) mmol/L Calcium (8.6-10.3) mg/dL Total Bilirubin (0.2-1.0) mg/dL AST (13-39) U/L ALT (7-52) U/L Alkaline Phosphatase (34-104) U/L C-Reactive Protein (< 5.00) mg/L B-Natriuretic Peptide 155 H ( - 100) pg/mL Total Protein (6.4-8.9) g/dL Albumin (3.2-5.2) g/dL Globulin (2-4) g/dL Albumin/Globulin Ratio (1-3) Lipase (11.0-82.0) U/L Blood Type A Negative Antibody Screen Negative Microbiology and Other Data: Microbiology 09/27/16 14:32 Stool Gross Appearance - Final Stool Stool Occult Blood (GORDON) - Final Assess/Plan/Problems-Billing Assessment: - Patient Problems (1) Rectal bleeding Current Visit: Yes Status: Acute Code(s): K62.5 - HEMORRHAGE OF ANUS AND RECTUM SNOMED Code(s): 47628182 Comment: Likely low volume of blood loss. Had colonoscopy 02/19/11, consider repeat as outpt. Decrease in hgb c/w fluid administration. Continue ASA, warfarin. Fup Dr. Dixon. Pt advised to discuss outpt colonoscopy with Dr. Maharaj (2) Atrial fibrillation Current Visit: Yes Status: Acute Code(s): I48.91 - UNSPECIFIED ATRIAL FIBRILLATION SNOMED Code(s): 31961099 Comment: Continue sotalol, catch up today with both doses. Continue usual dose warfarin. (3) HTN (hypertension) Current Visit: Yes Status: Acute Code(s): I10 - ESSENTIAL (PRIMARY) HYPERTENSION SNOMED Code(s): 61080066 Comment: Continue valsartan, sotalol. (4) CAD (coronary artery disease) Current Visit: Yes Status: Acute Code(s): I25.10 - ATHSCL HEART DISEASE OF [place] CORONARY ARTERY W/O ANG PCTRS SNOMED Code(s): 52946422 Comment: Continue ASA, statin. (5) Diabetes Current Visit: Yes Status: Acute Code(s): E11.9 - TYPE 2 DIABETES MELLITUS WITHOUT COMPLICATIONS SNOMED Code(s): 10623176 Comment: Resume metformin at home. Status and Disposition: Discharge now. Fup Dr. Dixon.
[2016-09-28] MEDS ORDERED: Valsartan TAB* 160 MG PO SCH (09:00)
[2016-09-28] MEDS: Aspirin Low Dose CHEW TAB* 81 MG PO SCH (09:23)
[2016-09-28] MEDS: Sotalol TAB* 80 MG PO SCH (09:23)
--- NOTE | 2016-09-28 11:37 | DS ---
DISCHARGE SUMMARY: DATE OF ADMISSION: 09/27/16 DATE OF DISCHARGE: 09/28/16 HOSPITAL COURSE: This 76-year-old man presented with history of rectal bleeding. He had gone to a pancake breakfast at the [employer] station. During the day, he had 6 small bowel movements with some amount of blood on them. He had no pain. He came to the emergency room and not had a bowel movement yet that day. He was admitted under observation. His vital signs remained stable. He had 1 brown bowel movement on the first hospital day and had not had a bowel movement on the second hospital day by the time I discharged him. His hematocrit in the hospital fell from 45 to 39. His hemoglobin fell from 14.8 to 12.9 and these values are compatible with intravenous fluid administration. I note his INR was 1.81, on repeat, it was 1.83. I did not change any of these medications including his aspirin and warfarin doses. I told him that he should talk to Dr. Dixon about possibly having a repeat colonoscopy as he has had 2 in the past, the last one being 5 years ago. Rectal exam by me was unremarkable. There was some brown stool on the glove tip. FINAL DIAGNOSIS: 1. Rectal bleeding with low volume or very low volume blood loss. 2. Atrial fibrillation, on chronic anticoagulation and rate control as well as sotalol antiarrhythmic. 3. Hypertension. 4. Coronary artery disease. DISCHARGE MEDICATIONS: 1. Aspirin 81 mg daily. 2. Sotalol 80 mg b.i.d. 3. Simvastatin 40 mg at bedtime. 4. Metformin 500 mg b.i.d. 5. Warfarin 7.5 mg Tuesday, Tuesday, and Tuesday and 5 mg on Tuesday and . 6. Acetaminophen 500 mg every 6 hours. 7. Sildenafil 50 mg p.r.n. 8. Valsartan 160 mg daily. CC: Casandra Dixon MD* [id number]/[facility] #: [id number] [facility]ITALSrini
[2016-09-28] MEDS ORDERED: Warfarin TAB(*) 5 MG PO SCH (17:00)
--- NOTE | 2016-12-09 00:56 | ED ---
Jennifer Hatfield Matthew, ivanibed for Billy Zambrano MD on 09/27/16 at 1232 . Progress - EKG/XRAY/CT EKG: NSR - 98 bpm Comments: Afib; Normal ST segment; 10:58 Course/Dx - Diagnoses Provider Diagnoses: GI bleed, Elevated INR - Provider Notifications Discussed Care Of Patient With: Dr. Dugan (Hospitalist) at 11:15 -- Notified of patient's history and will admit the patient. The documentation as recorded by the Jennifer garza Matthew accurately reflects the service I personally performed and the decisions made by , Billy Zambrano MD.
== END 2016-09-28 10:35 | disposition home or self-care (01) ==
LOC: ED 09:52 → MEDTELE 12:14 → MED 23:10
PROVIDERS: ADMIT Internal Medicine; ATTEND Internal Medicine
DX: K62.5 Hemorrhage of anus and rectum (principal); I48.91 Unspecified atrial fibrillation; Z79.01 Long term (current) use of anticoagulants; I25.10 Atherosclerotic heart disease of native coronary artery without angina pectoris; I10 Essential (primary) hypertension; Z79.82 Long term (current) use of aspirin; Z79.899 Other long term (current) drug therapy; Z87.891 Personal history of nicotine dependence; Z95.4 Presence of other heart-valve replacement
CPT/HCPCS: 36415; 80053; 81003; 82272; 83605; 83690; 83880; 85025; 85610; 85730; 86140; 86850; 86900; 86901; 93005; 96361; 96374; 99284; A9270-GY; G0378

== ENCOUNTER 2016-10-17 07:29 | Emergency (ER) | payer MEDICARE, BC ==
--- NOTE | 2016-10-17 08:21 | ED ---
Upper Extremity Pain - HPI Summary HPI Summary: Patient presents with two days of worsening swelling and pain in his right hand and wrist without known trauma. The only activity he can relate his symptoms to is using a screwdriver to put a fan in two days ago, and grabbing trash bags. He denies hearing or feeling a pop or acute pain. No prior injury to this hand or wrist. He took 500mg of Tylenol this AM with mild relief. No wounds are noted. No fevers, redness or warmth. There is swelling and restricted movement. - History of Current Complaint Chief Complaint: EDExtremityUpper Stated Complaint: RIGHT HAND INJURY Time Seen by Provider: 10/17/16 07:53 Hx Obtained From: Patient Mechanism Of Injury: Twisted Onset/Duration: Started Days Ago - 2 Timing: Constant Severity Initially: Mild Severity Currently: Severe Pain Location: Wrist, Hand Character: Dull, Aching, Stiffness Aggravating Factor(s): Movement Alleviating Factor(s): Rest Associated Signs & Symptoms: Positive: Swelling Related History: Dominant Hand Right - Allergies/Home Medications Allergies/Adverse Reactions: Allergies Allergy/AdvReac Type Severity Reaction Status Date / Time No Known Allergies Allergy Verified 10/17/16 07:40 PMH/Surg Hx/FS Hx/Imm Hx Endocrine/Hematology History: Reports: Hx Anticoagulant Therapy, Hx Diabetes Denies: Hx Thyroid Disease Cardiovascular History: Reports: Hx Angina, Hx Cardiac Arrest, Hx Coronary Artery Disease, Hx Deep Vein Thrombosis, Hx Hypertension Denies: Hx Pacemaker/ICD Respiratory History: Denies: Hx Asthma, Hx Chronic Obstructive Pulmonary Disease (COPD) GI History: Reports: Other GI Disorders - POLYP History: Denies: Hx Renal Disease Musculoskeletal History: Denies: Hx Arthritis, Hx Osteoporosis Comment Only: Other Musculoskeletal History - HIP REPLACEMENT, NECK INJURY Sensory History: Reports: Hx Contacts or Glasses, Hx Vision Problem, Hx Hearing Aid - DOESN'T WEAR Opthamlomology History: Reports: Hx Contacts or Glasses, Hx Vision Problem Neurological History: Denies: Hx Dementia, Hx Seizures Psychiatric History: Denies: Hx Panic Disorder, Hx Substance Abuse - Surgical History Surgery Procedure, Year, and Place: 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 CATARACTS WITH LENS TRANSPLANT;. RONAK FILTER SURGERY( 1.5 T ONLY);. PROSTATE;. BILATERAL HIPS REPLACEMENT;. 2 KNEE SURGERYS;. RIGHT ARM (UMBRELLA) FOR CLOT, HEART CATHS/ANGIOS (NO STENTS); Hx Anesthesia Reactions: No - Immunization History Date of Tetanus Vaccine: Unknown Date of Influenza Vaccine: Fall 2014 Infectious Disease History: No Infectious Disease History: Reports: Hx of Known/Suspected MRSA Denies: Hx Clostridium Difficile, Hx Hepatitis, Hx Human Immunodeficiency Virus (HIV), Hx Shingles, Hx Tuberculosis, Traveled Outside the [place] in Last 30 Days - Family History Known Family History: Positive: None Family History: No FHx of [place] - Social History Occupation: Retired Lives: With Family Alcohol Use: None Substance Use Type: Reports: None Smoking Status (MU): Never Smoked Tobacco Have You Smoked in the Last Year: No Review of Systems Negative: Fever Positive: Myalgia, Decreased ROM, Edema Negative: Rash, Bruising Negative: Weakness, Paresthesia, Numbness All Other Systems Reviewed And Are Negative: Yes Physical Exam Triage Information Reviewed: Yes Vital Signs On Initial Exam: Initial Vitals Temp Pulse Resp BP Pulse Ox 99.0 F 81 16 153/72 100 10/17/16 07:33 10/17/16 07:33 10/17/16 07:33 10/17/16 07:33 10/17/16 07:33 Vital Signs Reviewed: Yes Appearance: Positive: Well-Appearing, Well-Nourished, Pain Distress Skin: Positive: Warm, Skin Color Reflects Adequate Perfusion, Dry, Soft. Negative: Erythema @ Head/Face: Positive: Normal Head/Face Inspection Eyes: Positive: EOMI, GABRIEL, Conjunctiva Clear ENT: Positive: Hearing grossly normal Respiratory/Lung Sounds: Positive: Breath Sounds Present Cardiovascular: Positive: RRR Musculoskeletal: Positive: Limited @ - wrist flexion, extension, ulnar and radial deviation are limited by pain, Pain @ - TTP distal radius, carpals and metacarpals, Edema Right - right hand and wrist with mild edema Neurological: Positive: Sensory/Motor Intact, Alert, Oriented to Person Place, Time, NV Bundle Intact Distally Psychiatric: Positive: Affect/Mood Appropriate AVPU Assessment: Alert Diagnostics - Vital Signs Vital Signs Temp Pulse Resp BP Pulse Ox 10/17/16 07:33 99.0 F 81 16 153/72 100 - Laboratory Lab Statement: Any lab studies that have been ordered have been reviewed, and results considered in the medical decision making process. - Radiology No standard instances Xray Interpretation: No Acute Changes Radiology Interpretation Completed By: Radiologist Course/Dx - Diagnoses Differential Diagnosis/HQI/PQRI: Positive: Arthritis, Bursitis, Contusion, Fracture (Closed), Hematoma, Strain, Sprain Provider Diagnoses: Osteoarthritis of right wrist Discharge - Discharge Plan Condition: Stable Disposition: HOME Patient Education Materials: Osteoarthritis (ED) Referrals: Casandra Dixon MD [Primary Care Provider] - Additional Instructions: Wear your splint to protect you as your pain improves. Come out of the splint several times daily to perform gentle range of motion exercises to avoid stiffness. Elevate your hand above your heart and apply ice for 20 minutes several times daily to decrease swelling and pain. Use Tylenol for pain. Follow -up with your primary care provider in 2-3 days for evaluation if your symptoms do not improve. Return to the emergency department if your symptoms worsen.
[2016-10-17 08:46] LABS: Hematocrit 41 % (42-52); Hemoglobin 13.8 g/dl (14.0-18.0); Mean Corpuscular HGB Conc 33 g/dl (31-36); Mean Corpuscular Hemoglobin 31 pg (27-31); Mean Corpuscular Volume 92 fL (80-94); Mean Platelet Volume 9 um3 (7.4-10.4); Red Blood Count 4.48 10^6/ul (4.0-5.4); Red Cell Distribution Width 14 % (10.5-15); White Blood Count 9.1 10^3/ul (3.5-10.8)
--- NOTE | 2016-10-17 09:10 | RAD ---
INDICATION: Hand swelling and wrist pain. COMPARISON: None. TECHNIQUE: AP, lateral, and oblique views RIGHT wrist. AP, lateral, and oblique views of the RIGHT hand were obtained. REPORT: Negative for fracture or malalignment at the wrist or hand. Polyarticular osteoarthritis. Joint space narrowing is marked at the scaphoid trapezium articulation with associated subchondral sclerosis. Degenerative arthropathy is also advanced at the distal interphalangeal joints. Diffuse vascular calcifications and soft tissue swelling. IMPRESSION: Polyarticular osteoarthritis. Nonfocal soft tissue swelling. Negative for fracture.
[2016-10-17 09:48] VITALS: BP 127/92
== END 2016-10-17 09:46 | disposition home or self-care (01) ==
LOC: ED 07:29
DX: M19.031 Primary osteoarthritis, right wrist (principal); Z79.01 Long term (current) use of anticoagulants; Z86.718 Personal history of other venous thrombosis and embolism; Z86.74 Personal history of sudden cardiac arrest; I25.10 Atherosclerotic heart disease of native coronary artery without angina pectoris; I10 Essential (primary) hypertension
CPT/HCPCS: 36415; 84550; 85025; 99282

== ENCOUNTER 2017-03-17 13:31 | Observation (INO) | payer MEDICARE, BC ==
[2017-03-17 15:26] LABS: Hematocrit 42 % (42-52); Hemoglobin 13.8 g/dl (14.0-18.0); Mean Corpuscular HGB Conc 33 g/dl (31-36); Mean Corpuscular Hemoglobin 31 pg (27-31); Mean Corpuscular Volume 95 fL (80-94); Mean Platelet Volume 8 um3 (7.4-10.4); Red Blood Count 4.47 10^6/ul (4.0-5.4); Red Cell Distribution Width 15 % (10.5-15); White Blood Count 6.8 10^3/ul (3.5-10.8)
[2017-03-17 15:37] LABS: Albumin 3.7 g/dL (3.2-5.2); BUN/Creatinine Ratio 27.4 (8-20); Calcium 9.1 mg/dL (8.6-10.3); EGFR Non-African American 88.6 (>60); Globulin 3.5 g/dL (2-4); Potassium 4.6 mmol/L (3.5-5.0); Total Bilirubin 0.8 mg/dL (0.2-1.0); Total Protein 7.2 g/dL (6.4-8.9)
[2017-03-17] MEDS ORDERED: Pantoprazole IV* 40 MG IV ONE (18:20)
[2017-03-17] MEDS ORDERED: Ondansetron INJ* 2 MG/ML VIAL IV PRN (18:51)
[2017-03-17] MEDS: Pantoprazole IV* 80 MG in NS 0.9% 250 ML* 250 ML IVPB SCH (18:51)
[2017-03-17] MEDS ORDERED: Acetaminophen TAB* 325 MG PO PRN (18:51)
[2017-03-17 19:47] LABS: Hematocrit 40 % (42-52); Hemoglobin 13.2 g/dl (14.0-18.0)
[2017-03-17] MEDS: Sotalol TAB* 80 MG PO SCH (22:01)
[2017-03-17] MEDS: metFORMIN* 500 MG TAB PO SCH (22:01)
--- NOTE | 2017-03-17 22:58 | HP ---
CC: Dr. Dixon * ADMISSION HISTORY AND PHYSICAL: DATE OF ADMISSION: 03/17/17 PRIMARY CARE PROVIDER: Dr. Dixon. HEALTHCARE PROXY: His , Verenice. CODE STATUS: Full. SOURCE OF INFORMATION: History obtained from interview with the patient, _ Dr. Maravilla, review of past medical records. RELIABILITY: Fair. CHIEF COMPLAINT: Bright red blood per rectum. HISTORY OF PRESENT ILLNESS: This is a 76-year-old man with past medical history of atrial fibrillation, on Coumadin who had been in his usual state of health until the day prior to admission, went to the bathroom, had bright red blood on the toilet paper. Later in the day, he moved his bowels and had bright red blood surrounding the stool, but noted 1 bowel movement in between the 2 episodes where there was no blood. Today, he felt his stool was "a little dark" and had blood associated with his bowel movements twice, but could not differentiate whether the blood was in the stool or around the stool. He felt like he strains occasionally to move his bowels, but not all the time. He has no rectal itching, burning or pain and no history of hemorrhoids in the past. In September 2016, he was admitted with a similar episode with bright red blood per rectum. He had serial hemoglobin and hematocrit checked and was ultimately discharged with the bleeding resolved. His last colonoscopy was in 2010 with our gastroenterology services. At the moment, the patient has no distress. He denies any lightheadedness, shortness of breath, chest pain, or increased fatigue over the course of today or yesterday. Ultimately, he has no complaints. PAST MEDICAL HISTORY: 1. Atrial fibrillation. 2. Hypertension. 3. CAD, but no DC. 4. BPH. 5. DVT, status post . 6. Type 2 diabetes. 7. Aortic stenosis in the setting of rheumatic fever, status post aortic valve replacement (porcine). 8. Bilateral hip arthroplasty. 9. Prostatectomy. MEDICATIONS: Reviewed. The patient brought in his medications: 1. Metformin 500 mg twice daily. 2. Valsartan 160 mg daily. 3. Aspirin 81 mg daily. 4. Sotalol 80 mg twice daily. 5. Coumadin 5 mg tablet, 1.5 mg Tuesday, Tuesday, Tuesday and 1 tablet Tuesday , , Tuesday, Tuesday. ALLERGIES: No known drug allergies. FAMILY HISTORY: No history of CAD or cancer. SOCIAL HISTORY: Minimal alcohol in the 20s, none currently. No tobacco. Previous chewing tobacco, again in the 20s. REVIEW OF SYSTEMS: As per HPI, otherwise all other systems are negative. PHYSICAL EXAMINATION GENERAL: Younger than stated age, lying flat in bed, interactive, pleasant, no apparent distress. VITAL SIGNS: When seen by this author, 127/72, heart rate 71, respiratory rate is 16, T-max in the emergency room is 98.4, 99% on room air. HEENT: Oropharynx is clear. He has moist mucous membranes. Sclerae anicteric. NECK: He has non-elevated JVP. No cervical or supraclavicular lymphadenopathy. HEART: He has a regular rate and rhythm with a blowing 3/6 systolic ejection murmur. ABDOMEN: Soft, nontender, nondistended with positive bowel sounds. EXTREMITIES: Warm and well perfused. He has 2+ lower extremity bilateral pitting edema. He has a laceration of his left lower extremity, not associated erythema. NEURO: He is alert and oriented x3. His cranial nerves II through XII are intact. He has 5/5 strength throughout. No apparent anxiety, agitation, or depression. LABORATORY DATA/DIAGNOSTIC STUDIES: Pertinent labs reviewed. Hemoglobin 13.8 , last comparison was in October 2016, was also 13.8. INR 2.1. BUN 23, creatinine 0.84. AST 21, ALT 12. Data reviewed. Rectal performed by Dr. Maravilla, reported dark stool, no bright red blood. Stool occult is still pending acquisition, unable to perform at bedside. ASSESSMENT AND PLAN: This is a 76-year-old man with past medical history of atrial fibrillation, on Coumadin, currently therapeutically anticoagulated, presenting with 2 days of bright red blood per rectum. 1. Bright red blood per rectum. This does not seem like a significant bleed in the setting of 2 days of bleeding without changes in his hemoglobin from October 2016. Additionally, he remains normotensive and not tachycardic and asymptomatic. However, in the setting of his therapeutic anticoagulation, I think he warrants an observation stay to continue to monitor hemoglobin and hematocrit. Additionally, hemoglobin and hematocrit now to be continued q.6 h. until the morning. Additionally, he will hold Coumadin this evening, restart tomorrow if bleeding ceases. At this point, we will not contact Gastroenterology. I do not think he warrants a colonoscopy if his bleeding has ceased. If there is any significant drop in his hemoglobin instability or his bleeding continues, we will contact Gastroenterology for consult. At this point , his bleeding seems to be lower. We will not initiate a Protonix drip. 2. Atrial fibrillation. Continue sotalol. Hold Coumadin for above. 3. History of coronary artery disease, but no myocardial infarction. Continue aspirin. 4. Type 2 diabetes, continue metformin. 5. DVT prophylaxis, therapeutically anticoagulated on Coumadin. 6. Code status is full. [id number]/[facility] #: [id number] MTDD
[2017-03-18 01:04] LABS: Hematocrit 39 % (42-52); Hemoglobin 12.8 g/dl (14.0-18.0)
[2017-03-18] MEDS: Pantoprazole IV* 80 MG in NS 0.9% 250 ML* 250 ML IVPB SCH (05:02)
[2017-03-18 06:02] LABS: Hematocrit 40 % (42-52); Hemoglobin 13.3 g/dl (14.0-18.0)
[2017-03-18] MEDS ORDERED: Valsartan TAB* 160 MG PO SCH (09:00)
[2017-03-18] MEDS ORDERED: Aspirin Low Dose CHEW TAB* 81 MG PO SCH (09:00)
[2017-03-18] MEDS: Sotalol TAB* 80 MG PO SCH (09:03)
[2017-03-18] MEDS: metFORMIN* 500 MG TAB PO SCH (09:04)
[2017-03-18 09:27] VITALS: BP 144/72
--- NOTE | 2017-03-19 09:40 | DS ---
CC: Dr. Dixon; Dr. Sorenson; Dr. Melendez * DISCHARGE SUMMARY: DATE OF ADMISSION: 03/17/17 DATE OF DISCHARGE: 03/18/17 PRIMARY CARE PROVIDER: Dr. Dixon. PRIMARY DIAGNOSIS: Bright red blood per rectum. SECONDARY DIAGNOSES: 1. Hemorrhoids. 2. Atrial fibrillation, on Coumadin. 3. Hypertension. 4. Coronary artery disease. 5. No history of myocardial infarction. 6. Benign prostatic hyperplasia. 7. History of deep venous thrombosis status post filter placement. 8. Type 2 diabetes. 9. History of aortic stenosis status post aortic valve replacement. MEDICATIONS ON DISCHARGE: 1. Tramadol 50 mg twice daily. 2. Metformin 500 mg twice daily. 3. Valsartan 160 mg daily. 4. Sotalol 80 mg twice daily. 5. Zocor 40 mg at bedtime. 6. Viagra 50 mg as needed. 7. Aspirin 81 mg daily. 8. Acetaminophen 500 mg every 6 hours as needed for pain or fevers. 9. Please note discontinuation/holding of Coumadin until followed up with Dr. Dixon next week. PERTINENT LABORATORY DATA: Hemoglobin on presentation 13.8, remained stable and on discharge 13.3. INR at discharge 1.97. BUN 23. HISTORY OF PRESENT ILLNESS AND HOSPITAL COURSE: A 76-year-old man, past medical history as outlined in history of present illness and date of admission including atrial fibrillation, therapeutic on Coumadin, has been in usual state of health, presented to the hospital, reported bright red blood per rectum, noted first blood in the toilet paper, then blood in the bowl, was non-painful. He had several episodes for 24 hours prior to presentation, is starting to resolve. In the hospital, his stool was guaiac positive; however, after 24 hours admission had no additional blood per rectum. In addition, his hemoglobin remained stable. Of note, he had similar episode in September where he was observed for bright red blood per rectum that resolved without intervention. His last colonoscopy was in [address] Melendez. exam was notable for slightly prolapsing hemorrhoids. I suspect his internal hemorrhoids are the etiology of his bleeding. I suspect it to be internal based on the absence of symptoms as well as volume of bleeding. I discussed with Dr. Sorenson in order to arrange outpatient followup. We will hold on patient's Coumadin until follow up 4 days from now, at which time evaluation of banding of hemorrhoids can take place if deemed necessary. The patient will follow up with Dr. Dixon next week as well with resumption of Coumadin. I have relayed this information to patient, Dr. Dixon as well as Dr. Sorenson prior to discharge. At followup, please; 1. Restart Coumadin. 2. Evaluate the need for colonoscopy as internal hemorrhoids are not felt on exam. 3. Dr. Hardy's number was left with patient to follow up on discharge. Reason to return to the hospital including, but not limited to recurrent worsening symptoms including recurrent bleeding from any source, lightheadedness , shortness of breath, nausea, vomiting or chest pain, loss of consciousness or near-loss consciousness was discussed with patient, he acknowledged understanding. Greater than 45 minutes was spent in the discharge of this patient, greater than half was spent [id number] with the patient. [id number]/[facility] #: [id number] MTDSrini
--- NOTE | 2017-03-20 22:58 | ED ---
Mariann Hatfield [place], scribed for Neville Maravilla MD on 03/17/17 at 1759 . GI/ HPI - HPI Summary HPI Summary: Patient is a 76 y/o M who presents to the ED with blood in his stool since yesterday. He describes his stools as black and with some mel blood. Pt denies CP, SOB, dizziness, or lightheadedness. Pt states that he has a hx of similar episodes. He states that he takes ASA 81mg and Coumadin. Pt reports that he still works and would prefer to be DC'd so he can return to work tomorrow morning. - History of Current Complaint Chief Complaint: EDGIBleed Time Seen by Provider: 03/17/17 17:32 Stated Complaint: GI BLEEDING Hx Obtained From: Patient Onset/Duration: Started Days Ago, Atraumatic, Still Present Timing: Intermittent Severity: Moderate Current Severity: Moderate Pain Intensity: 0 Associated Signs and Symptoms: Positive: Blood w/Stool Aggravating Factor(s): Nothing Alleviating Factor(s): Nothing - Additional Pertinent History Primary Care Physician: SETH - Allergy/Home Medications Allergies/Adverse Reactions: Allergies Allergy/AdvReac Type Severity Reaction Status Date / Time No Known Allergies Allergy Verified 10/17/16 07:40 PMH/Surg Hx/FS Hx/Imm Hx Endocrine/Hematology History: Reports: Hx Anticoagulant Therapy, Hx Diabetes Denies: Hx Thyroid Disease Cardiovascular History: Reports: Hx Angina, Hx Cardiac Arrest, Hx Coronary Artery Disease, Hx Deep Vein Thrombosis, Hx Hypertension Denies: Hx Pacemaker/ICD Respiratory History: Denies: Hx Asthma, Hx Chronic Obstructive Pulmonary Disease (COPD) GI History: Reports: Other GI Disorders - POLYP History: Denies: Hx Renal Disease Musculoskeletal History: Denies: Hx Arthritis, Hx Osteoporosis Comment Only: Other Musculoskeletal History - HIP REPLACEMENT, NECK INJURY Sensory History: Reports: Hx Contacts or Glasses, Hx Vision Problem, Hx Hearing Aid - DOESN'T WEAR Opthamlomology History: Reports: Hx Contacts or Glasses, Hx Vision Problem Neurological History: Denies: Hx Dementia, Hx Seizures Psychiatric History: Denies: Hx Panic Disorder, Hx Substance Abuse - Surgical History Surgery Procedure, Year, and Place: 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 CATARACTS WITH LENS TRANSPLANT;. RONAK FILTER SURGERY( 1.5 T ONLY);. PROSTATE;. BILATERAL HIPS REPLACEMENT;. 2 KNEE SURGERYS;. RIGHT ARM (UMBRELLA) FOR CLOT, HEART CATHS/ANGIOS (NO STENTS); Hx Anesthesia Reactions: No - Immunization History Date of Tetanus Vaccine: Unknown Date of Influenza Vaccine: Fall 2014 Infectious Disease History: No Infectious Disease History: Reports: Hx of Known/Suspected MRSA Denies: Hx Clostridium Difficile, Hx Hepatitis, Hx Human Immunodeficiency Virus (HIV), Hx Shingles, Hx Tuberculosis, Traveled Outside the [place] in Last 30 Days - Family History Family History: No FHx of [place] - Social History Alcohol Use: None Hx Substance Use: No Substance Use Type: Reports: None Hx Tobacco Use: No Smoking Status (MU): Never Smoked Tobacco Have You Smoked in the Last Year: No Review of Systems Negative: Fever, Chills Negative: Erythema Negative: Sore Throat Negative: Chest Pain Negative: Shortness Of Breath, Cough Negative: Abdominal Pain, Vomiting, Nausea Positive: other - Blood in stool. . Negative: dysuria, hematuria Negative: Myalgia, Edema Negative: Rash Neurological: Other - No dizziness or lightheadedness. All Other Systems Reviewed And Are Negative: Yes Physical Exam - Summary Physical Exam Summary: Constitutional: Well-developed, Well-nourished, Alert. (-) Distressed Skin: Warm, Dry HENT: Normocephalic; Atraumatic Eyes: Conjunctiva normal Neck: Musculoskeletal ROM normal neck. (-) JVD, (-) Stridor, (-) Tracheal deviation Cardio: Rhythm regular, rate normal, Heart sounds normal; Intact distal pulses; The pedal pulses are 2+ and symmetric. Radial pulses are 2+ and symmetric. (-) Murmur Pulmonary/Chest wall: Effort normal. (-) Respiratory distress, (-) Wheezes, (-) Rales Abd: Soft, (-) Tenderness, (-) Distension, (-) Guarding, (-) Rebound GIGU: Mel blood per rectum. Musculoskeletal: (-) Edema Lymph: (-) Cervical adenopathy Neuro: Alert, Oriented x3 Psych: Mood and affect Normal Triage Information Reviewed: Yes Vital Signs On Initial Exam: Initial Vitals Temp Pulse Resp BP Pulse Ox 97.8 F 71 17 147/88 99 03/17/17 14:01 03/17/17 14:01 03/17/17 14:01 03/17/17 14:01 03/17/17 14:01 Vital Signs Reviewed: Yes - [place]elin Coma Scale Coma Scale Total: 15 Diagnostics - Vital Signs Vital Signs Temp Pulse Resp BP Pulse Ox 03/17/17 16:29 98.4 F 63 16 158/86 96 03/17/17 16:26 98.7 F 66 14 106/59 97 03/17/17 14:39 98.3 F 71 17 141/78 99 03/17/17 14:01 97.8 F 71 17 147/88 99 - Laboratory Lab Results: Lab Results 03/17/17 03/17/17 03/17/17 Range/Units 15:11 15:11 15:11 WBC 6.8 (3.5-10.8) 10^3/ul RBC 4.47 (4.0-5.4) 10^6/ul Hgb 13.8 L (14.0-18.0) g/dl Hct 42 (42-52) % MCV 95 H (80-94) fL MCH 31 (27-31) pg MCHC 33 (31-36) g/dl RDW 15 (10.5-15) % Plt Count 165 (150-450) 10^3/ul MPV 8 (7.4-10.4) um3 Neut % (Auto) 56.7 (38-83) % Lymph % (Auto) 28.9 (25-47) % [place] % (Auto) 9.0 (1-9) % Eos % (Auto) 4.5 (0-6) % Baso % (Auto) 0.9 (0-2) % Absolute Neuts (auto) 3.8 (1.5-7.7) 10^3/ul Absolute Lymphs (auto) 2.0 (1.0-4.8) 10^3/ul Absolute Monos (auto) 0.6 (0-0.8) 10^3/ul Absolute Eos (auto) 0.3 (0-0.6) 10^3/ul Absolute Basos (auto) 0.1 (0-0.2) 10^3/ul Absolute Nucleated RBC 0 10^3/ul Nucleated RBC % 0 INR (Anticoag Therapy) 2.14 H (0.89-1.11) APTT 39.3 H (26.0-36.3) seconds Sodium 137 (133-145) mmol/L Potassium 4.6 (3.5-5.0) mmol/L Chloride 104 (101-111) mmol/L Carbon Dioxide 29 (22-32) mmol/L Anion Gap 4 (2-11) mmol/L BUN 23 (6-24) mg/dL Creatinine 0.84 (0.67-1.17) mg/dL Est GFR ( Amer) 114.0 (>60) Est GFR (Non-Af Amer) 88.6 (>60) BUN/Creatinine Ratio 27.4 H (8-20) Glucose 79 (70-100) mg/dL Calcium 9.1 (8.6-10.3) mg/dL Total Bilirubin 0.80 (0.2-1.0) mg/dL AST 21 (13-39) U/L ALT 12 (7-52) U/L Alkaline Phosphatase 79 (34-104) U/L Total Protein 7.2 (6.4-8.9) g/dL Albumin 3.7 (3.2-5.2) g/dL Globulin 3.5 (2-4) g/dL Albumin/Globulin Ratio 1.1 (1-3) Result Diagrams: 03/17/17 15:11 03/17/17 15:11 Lab Statement: Any lab studies that have been ordered have been reviewed, and results considered in the medical decision making process. GIGU Course/Dx - Course Course Of Treatment: 76 y/o M presents with blood in his stool since yesterday. He describes his stools as black and with some mel blood. Pt denies CP, SOB, dizziness, or lightheadedness. Discussed case with Dr. Mujica and Dr. Pedro. Dr. Mujica will admit pt @ [id number]. - Diagnoses Provider Diagnoses: GI bleed - Physician Notifications Discussed Care Of Patient With: Trevor Pedro Time Discussed With Above Provider: 18:05 Instructed by Provider To: Other Discharge - Discharge Plan Condition: Stable Disposition: ADMITTED TO [facility] Referrals: Casandra Dixon MD [Primary Care Provider] - The documentation as recorded by the Mariann garza [place] accurately reflects the service I personally performed and the decisions made by , Neville Maravilla MD.
== END 2017-03-18 13:00 | disposition home or self-care (01) ==
LOC: ED 13:31 → MED 18:51
PROVIDERS: ADMIT Internal Medicine; ATTEND Internal Medicine
DX: K62.5 Hemorrhage of anus and rectum (principal); K64.8 Other hemorrhoids; I48.91 Unspecified atrial fibrillation; Z79.01 Long term (current) use of anticoagulants; I10 Essential (primary) hypertension; I25.10 Atherosclerotic heart disease of native coronary artery without angina pectoris; N40.0 Benign prostatic hyperplasia without lower urinary tract symptoms; E11.9 Type 2 diabetes mellitus without complications; Z79.84 Long term (current) use of oral hypoglycemic drugs; Z79.82 Long term (current) use of aspirin; Z79.899 Other long term (current) drug therapy; Z95.3 Presence of xenogenic heart valve
CPT/HCPCS: 36415; 80053; 82272; 85014; 85018; 85025; 85610; 85730; 96365; 96366; 99284; A9270-GY; G0378

== ENCOUNTER 2017-11-14 11:27 | Emergency (ER) | payer BC, MEDICARE ==
[2017-11-14 12:12] VITALS: BP 130/77
--- NOTE | 2017-11-14 12:21 | UC ---
Shoulder Pain HPI - HPI Summary HPI Summary: Pt presents with right shoulder pain since about 2 hours [employer]LECT[employer]. He was lifting a countertop into a dumpster - felt a sharp snap and stabbing pain in his right shoulder. Since that time he has been unable to lift his shoulder from his side , but can help it with his other arm without pain. He has not taken anything OTC for this. 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 Denies numbness, tingling, or loss of sensation in his right UE - History of Current Complaint Chief Complaint: UCUpperExtremity Stated Complaint: ARM INJURY Time Seen by Provider: 11/14/17 12:21 Hx Obtained From: Patient Onset/Duration: Sudden Onset Timing: Constant Severity Initially: Mild Severity Currently: Mild Pain Intensity: 2 Pain Scale Used: 0-10 Numeric Character: Sharp, Aching Aggravating Factor(s): Movement, Lifting Alleviating Factor(s): Rest - Allergies/Home Medications Allergies/Adverse Reactions: Allergies Allergy/AdvReac Type Severity Reaction Status Date / Time No Known Allergies Allergy Verified 11/14/17 12:12 PMH/Surg Hx/FS Hx/Imm Hx - Additional Past Medical History Additional PMH: Aortic valve replacement Endocrine History: Diabetes, Dyslipidemia Cardiovascular History: Hypertension Other History Of: Anticoagulant Therapy - Surgical History Surgical History: Yes Surgery Procedure, Year, and Place: 2004 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 CATARACTS WITH LENS TRANSPLANT;. RONAK FILTER SURGERY( 1.5 T ONLY);. PROSTATE;. BILATERAL HIPS REPLACEMENT;. 2 KNEE SURGERYS;. RIGHT ARM (UMBRELLA) FOR CLOT, HEART CATHS/ANGIOS (NO STENTS); - Family History Known Family History: Positive: None Family History: No FHx of [place] - Social History Occupation: Employed Part-time Alcohol Use: None Substance Use Type: None Smoking Status (MU): Never Smoked Tobacco Have You Smoked in the Last Year: No - Immunization History Most Recent Influenza Vaccination: 2014 Most Recent Tetanus Shot: UNKNOWN Most Recent Pneumonia Vaccination: may 2015 per primary care Review of Systems Constitutional: Negative Skin: Negative Respiratory: Negative Cardiovascular: Negative Neurovascular: Negative Musculoskeletal: Decreased ROM - Right shoulder, Other: - Pain right shoulder Neurological: Negative Psychological: Negative All Other Systems Reviewed And Are Negative: Yes Physical Exam - Summary Physical Exam Summary: GENERAL: NAD. WDWN. No pain distress. SKIN: No rashes, sores, ulcers, masses, lesions. NECK: Supple. Nontender. No lymphadenopathy. CHEST: CTAB. No r/r/w. No accessory muscle use. Breathing comfortably and in no distress. CV: RRR. Without m/r/g. Pulses intact radial and ulnar. MSK: Mild TTP over anterior right shoulder. No active ROM 0-90deg, but >90deg has active ROM. Passive ROM 0-180deg with mild pain >90deg. No edema or obvious bony deformities. Positive apleys, apprehension, chavez-delgado, and yergason tests. Negative empty can and osuna. NEURO: Alert. Sensations intact right UE, hand, and all fingers. PSYCH: Age appropriate behavior. Triage Information Reviewed: Yes Vital Signs: Initial Vital Signs Temp 97.9 F 11/14/17 12:08 Pulse 75 11/14/17 12:08 Resp 12 11/14/17 12:08 BP 130/77 11/14/17 12:08 Pulse Ox 98 11/14/17 12:08 Shoulder Course/Dx - Course Course Of Treatment: XR: IMPRESSION: OSTEOARTHRITIS. NO ACUTE OSSEOUS INJURY. IF SYMPTOMS PERSIST, RECOMMEND REPEAT IMAGING. Suspect rotator cuff injury of right shoulder. He is very active and doesn't want to wear a sling or rest. I will try him with voltaren gel and have him f/u with Orthopedics for further evaluation/treatment. - Differential Dx/Diagnosis Provider Diagnoses: Right shoulder pain Discharge - Discharge Plan Condition: Stable Disposition: HOME Prescriptions: Diclofenac 1% GEL (NF) [Voltaren 1% GEL (NF)] 1 applic TOPICAL BID PRN #1 tube PRN Reason: Pain Patient Education Materials: Rotator Cuff Injury (ED) Referrals: Lauro Rushing MD [Medical Doctor] - If Needed Casandra Dixon MD [Primary Care Provider] - Additional Instructions: If you develop a fever, shortness of breath, chest pain, new or worsening symptoms - please call your PCP or go to the ED. 1) Rest and apply ice to your shoulder as needed 2) May take tylenol as needed for pain 3) Please call Orthopedics at the number below to schedule a follow up appointment regarding your shoulder pain
--- NOTE | 2017-11-14 12:56 | RAD ---
HISTORY: Right shoulder pain COMPARISONS: None VIEWS: 4, Frontal internal rotation, external rotation, outlet, and axillary views of the right shoulder FINDINGS: BONE DENSITY: Normal. BONES: There is no displaced fracture. JOINTS: There is moderate osteoarthritis of the a.c. and glenohumeral joints. ALIGNMENT: There is no dislocation. SOFT TISSUES: Unremarkable. OTHER FINDINGS: None. IMPRESSION: OSTEOARTHRITIS. NO ACUTE OSSEOUS INJURY. IF SYMPTOMS PERSIST, RECOMMEND REPEAT IMAGING.
== END 2017-11-14 13:58 | disposition home or self-care (01) ==
LOC: UCEAST 11:27
DX: M25.511 Pain in right shoulder (principal); E11.9 Type 2 diabetes mellitus without complications; E78.5 Hyperlipidemia, unspecified; I10 Essential (primary) hypertension; Z79.01 Long term (current) use of anticoagulants; X50.0XXA Overexertion from strenuous movement or load, initial encounter; Y93.89 Activity, other specified; Y92.9 Unspecified place or not applicable
CPT/HCPCS: 99212; G0463

== ENCOUNTER 2018-05-10 11:13 | Emergency (ER) | payer MEDICARE, BC ==
[2018-05-10] MEDS ORDERED: Cyclobenzaprine TAB* 10 MG PO ONE (12:03)
--- NOTE | 2018-05-10 12:30 | ED ---
Back Pain - HPI Summary HPI Summary: Pt is a 77 y/o male who presents to the ED c/o back pain. He states he injured his back 2 weeks ago when he threw a spare tire into his trunk and heard a snap in his back. Pt got an MRI last week, which revealed a pinched nerve and cracked vertebrae. Pt rates the pain as a 8-9/10 in severity, and has difficulty getting out of bed and walking due to pain. Particularly, he reports pain down his right leg. He also reports mild leg swelling. Pt has been taking Tramadol and Naproxen. He denies any saddle anesthesia, incontinence, headache, double vision, blurry vision, ear ache, sore throat, CP, abdominal pain, neck pain, hematochezia, or hematuria. Pt is on Coumadin. - History of Current Complaint Chief Complaint: EDBackInjuryPain Stated Complaint: BACK INJURY/ PAIN Hx Obtained From: Patient Onset/Duration: Sudden Onset, Lasting Weeks - 2, Still Present Timing: Constant Severity Currently: Severe Pain Intensity: 8 - 8-9 Pain Scale Used: 0-10 Numeric Aggravating Symptom(s): Movement, Walking Associated Signs And Symptoms: Positive: Pain with Weight Bearing. Negative: Numbness, Bladder Incontinence, Bowel Incontinence - Allergies/Home Medications Allergies/Adverse Reactions: Allergies Allergy/AdvReac Type Severity Reaction Status Date / Time No Known Allergies Allergy Verified 05/10/18 11:24 PMH/Surg Hx/FS Hx/Imm Hx Endocrine/Hematology History: Reports: Hx Anticoagulant Therapy, Hx Diabetes - ON MEDS Denies: Hx Thyroid Disease Cardiovascular History: Reports: Hx Angina, Hx Cardiac Arrest, Hx Coronary Artery Disease, Hx Deep Vein Thrombosis, Hx Hypertension - ON MEDS Denies: Hx Pacemaker/ICD Respiratory History: Denies: Hx Asthma, Hx Chronic Obstructive Pulmonary Disease (COPD) GI History: Reports: Other GI Disorders - POLYP History: Denies: Hx Renal Disease Musculoskeletal History: Denies: Hx Arthritis, Hx Osteoporosis Comment Only: Other Musculoskeletal History - HIP REPLACEMENT, NECK INJURY Sensory History: Reports: Hx Contacts or Glasses, Hx Vision Problem Denies: Hx Hearing Aid Opthamlomology History: Reports: Hx Contacts or Glasses, Hx Vision Problem Neurological History: Denies: Hx Dementia, Hx Seizures Psychiatric History: Denies: Hx Anxiety, Hx Depression, Hx Panic Disorder, Hx Substance Abuse - Surgical History Surgery Procedure, Year, and Place: 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 CATARACTS WITH LENS TRANSPLANT;. RONAK FILTER SURGERY( 1.5 T ONLY);. PROSTATE;. BILATERAL HIPS REPLACEMENT;. 2 KNEE SURGERYS;. RIGHT ARM (UMBRELLA) FOR CLOT, HEART CATHS/ANGIOS (NO STENTS); Hx Anesthesia Reactions: No - Immunization History Date of Tetanus Vaccine: Unknown Date of Influenza Vaccine: Fall 2014 Infectious Disease History: No Infectious Disease History: Reports: Hx of Known/Suspected MRSA Denies: Hx Clostridium Difficile, Hx Hepatitis, Hx Human Immunodeficiency Virus (HIV), Hx Shingles, Hx Tuberculosis, Traveled Outside the [place] in Last 30 Days - Family History Known Family History: Negative: Other - Cancer - Social History Alcohol Use: None Hx Substance Use: No Substance Use Type: Reports: None Hx Tobacco Use: No Smoking Status (MU): Never Smoked Tobacco Have You Smoked in the Last Year: No Review of Systems Negative: Blurred Vision, Diplopia Negative: Sore Throat, Ear Ache Negative: Chest Pain Negative: Shortness Of Breath Negative: Abdominal Pain, Other - Hematochezia Negative: hematuria, incontinence Positive: Myalgia - Back pain, Edema - Mild LE. Negative: Other - Neck pain Negative: Rash, Bruising Negative: Headache, Numbness - Saddle anesthesia Negative: Anxious, Depressed All Other Systems Reviewed And Are Negative: No Physical Exam - Summary Physical Exam Summary: Appearance: Alert, conversive, nontoxic appearing, slow to turn Skin: Warm, dry, no mottling, no rashes, no contusions HEENT: EOMI, PERRL, moist mucous membranes Neck: No masses on the neck, supple Respiratory: Clear to auscultation, breath sounds present, no rales, no rhonchi , no wheezes Cardiovascular: systolic ejection murmur 3/6, pulses are symmetrical in both lower and upper extremities Abdomen: Soft, non-tender Bowel Sounds: Present Musculoskeletal: No CVA tenderness, no obvious deformity, moving all extremities in a grossly normal manner Neurological: A&Ox3, CN II-XII Intact, moving all extremities symmetrically Psychiatric: Normal affect and mood Triage Information Reviewed: Yes Vital Signs On Initial Exam: Initial Vitals Temp Pulse Resp BP Pulse Ox 97.9 F 96 20 125/108 98 05/10/18 11:17 05/10/18 11:17 05/10/18 11:17 05/10/18 11:17 05/10/18 11:17 Vital Signs Reviewed: Yes Diagnostics - Vital Signs Vital Signs Temp Pulse Resp BP Pulse Ox 05/10/18 11:17 97.9 F 96 20 125/108 98 - Laboratory Lab Statement: Any lab studies that have been ordered have been reviewed, and results considered in the medical decision making process. - Radiology Pelvis XR Xray Interpretation: No Acute Changes - NO ACUTE DIAGNOSTIC FINDINGS. BILATERAL HIP ARTHROPLASTY. ED physician reviewed radiology report. Radiology Interpretation Completed By: Radiologist Lumbar Spine XR Xray Interpretation: No Acute Changes - No evidence for worsening of the subacute anterior column compression fracture at the L2 vertebral body compared with the May 01, 2018 exam. Unchanged chronic mild anterior compression fracture at L1. Negative for interval development of a new fracture compared with the recent prior exam. ED physician reviewed radiology report. Radiology Interpretation Completed By: Radiologist Back Pain Course/Dx - Course Course Of Treatment: Pt is a 77 y/o male who presents to the ED c/o back pain. He states he injured his back 2 weeks ago when he threw a spare tire into his trunk and heard a snap in his back. Pt got an MRI last week, which revealed a pinched nerve and cracked vertebrae. Pt has difficulty getting out of bed and walking due to pain.. He also reports mild leg swelling. He denies any saddle anesthesia, incontinence, headache, double vision, blurry vision, ear ache, sore throat, CP, abdominal pain, neck pain, hematochezia, or hematuria. Pt is on Coumadin. A physical exam revealed slow to turn and systolic ejection murmur 3/6. A pelvis and lumbar spine XR revealed no acute findings. Final dx is back pain. Pt will be discharged and is agreeable with this plan. - Diagnoses Provider Diagnoses: Back pain Discharge - Sign-Out/Discharge Documenting (check all that apply): Patient Departure - Discharge - Discharge Plan Condition: Stable Disposition: HOME Prescriptions: Cyclobenzaprine TAB* [Flexeril 10 MG TAB*] 10 mg PO Q8H #20 tab MDD 3 Patient Education Materials: Low Back Strain (ED) Referrals: Casandra Dixon MD [Primary Care Provider] - 3 Days Additional Instructions: please follow up with your primary care physician next week. take the flexeril as instructed. return if worse or any new symptoms. Take all other medications as previously instructed. Avoid heavy lifting or straining your back. - Billing Disposition and Condition Condition: STABLE Disposition: Home - Attestation Statements Document Initiated by Estela: Yes Documenting Scribe: Henrietta Alvarez Provider For Whom Estela is Documenting (Include Credential): Lilibeth Kebede MD Scribe Attestation: Henrietta Hatfield, scribed for Lilibeth Kebede MD on 05/10/18 at 1416. Scribe Documentation Reviewed: Yes Provider Attestation: The documentation as recorded by the Henrietta garza accurately reflects the service I personally performed and the decisions made by me, Lilibeth Kebede MD
--- NOTE | 2018-05-10 12:53 | RAD ---
Indication: Persistent pain. Recent injury with L2 compression fracture. Comparison: May 01, 2018 MRI. Technique: AP and lateral views lumbar sacral spine. Report: Normal lumbar sacral spine alignment. No significant change in mild anterior compression deformities at the L1 and L2 vertebral bodies compared with the May 01, 2018 exam. No suggestion of involvement of the middle column at either vertebral body. Negative for interval development of a new fracture compared with the recent MRI. Diffuse degenerative spondylosis and facet joint osteoarthritis as well as secondary degenerative arthropathy between the spinous processes. Multilevel mild to moderate disc space narrowing at the visualized lower thoracic through lumbar sacral spine without change. Unremarkable paraspinal soft tissue contours. IVC filter and bilateral hip prostheses noted. IMPRESSION: #. No evidence for worsening of the subacute anterior column compression fracture at the L2 vertebral body compared with the May 01, 2018 exam. #. Unchanged chronic mild anterior compression fracture at L1. #. Negative for interval development of a new fracture compared with the recent prior exam.
--- NOTE | 2018-05-10 12:54 | RAD ---
INDICATION: Pelvic pain COMPARISON: None TECHNIQUE: A single AP view of the pelvis is submitted. FINDINGS: Osseous structures: There is osteopenia. There is bilateral hip arthroplasty. The prostheses appear normally seated on the AP view SI joints and symphysis: Intact Soft tissues: Scattered phleboliths. Vascular calcifications Other: None IMPRESSION: NO ACUTE DIAGNOSTIC FINDINGS. BILATERAL HIP ARTHROPLASTY.
[2018-05-10 14:37] VITALS: BP 131/89
== END 2018-05-10 14:36 | disposition home or self-care (01) ==
LOC: ED 11:13
DX: M54.9 Dorsalgia, unspecified (principal); M84.48XA Pathological fracture, other site, initial encounter for fracture; M85.88 Other specified disorders of bone density and structure, other site; I10 Essential (primary) hypertension; Z96.643 Presence of artificial hip joint, bilateral; Z79.01 Long term (current) use of anticoagulants; Z79.899 Other long term (current) drug therapy
CPT/HCPCS: 72100; 72170; 99282; A9270-GY

== ENCOUNTER 2018-10-13 12:02 | Emergency (ER) | payer MEDICARE, BC ==
[2018-10-13 12:50] VITALS: BP 125/72
--- NOTE | 2018-10-13 13:40 | UC ---
Back Pain HPI - HPI Summary HPI Summary: 78 y/o male presents to the urgent care c/o Pt is patient of Dr. Rios. Pt states had injury to back "cracked vertebrae and pinched nerve" was sent to pain clinic. States had 2 CT last week for increasing pain and weight loss. [facility] CT found spine curved. Needs something to help get through weekend - has appt at [facility] on Tuesday. 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 CATARACTS WITH LENS TRANSPLANT;. RONAK FILTER SURGERY( 1.5 T ONLY);. PROSTATE;. BILATERAL HIPS REPLACEMENT;. 2 KNEE SURGERYS;. RIGHT ARM (UMBRELLA) FOR CLOT, HEART CATHS/ANGIOS (NO STENTS); - Family History Known Family History: Negative: Other - Cancer - Social History Alcohol Use: None Substance Use Type: None Smoking Status (MU): Never Smoked Tobacco Have You Smoked in the Last Year: No - Immunization History Most Recent Influenza Vaccination: 2014 Most Recent Tetanus Shot: UNKNOWN Most Recent Pneumonia Vaccination: may 2015 per primary care Physical Exam - Summary Physical Exam Summary: Vital Signs Reviewed: Yes Appearance: Well-Appearing, Well-Nourished, old man sitting in the examining table w/o any apparent distress. Eyes: Positive: Conjunctiva Clear - PERRLA, EOMI. ENT: Positive: Normal ENT inspection, Hearing grossly normal, Pharynx normal, TMs normal, Uvula midline Neck: Positive: Supple, Nontender, No Lymphadenopathy Respiratory: Positive: Chest non-tender, Lungs clear, Normal breath sounds, No respiratory distress Cardiovascular: Positive: RRR, No Murmur, Pulses Normal, Brisk Capillary Refill Abdomen Description: Positive: Nontender, No Organomegaly, Soft. Negative: CVA Tenderness (R), CVA Tenderness (L) Bowel Sounds: Positive: Present Musculoskeletal: Positive: Strength Intact, BACK: Patient walked into the urgent care room with symmetric ambulation, No signs of limping, antalgic, able to bear weight. No signs of trauma, No masses palpated. Point tenderness at the level of L2-L4, No CVAT, no flank ecchymosis . No sacroiliac notch tenderness, No saddle anesthesia.ROM: limited due to pain, Straight Leg Raise: negative. Patellar reflexes: brisk, symmetric Muscle strength lower extremities. Dorsiflexion/ plantar flexion of ankles. Heel/ toe walk. Lower extremities: Femoral, popliteal, posterior tibial, and dorsalis pedis pulses WNL. Pt refuse rectal exam Neurological: Positive: Alert, Muscle Tone Normal Psychological Exam: Normal Skin Exam: Normal Triage Information Reviewed: Yes Vital Signs: Initial Vital Signs Temp 98.1 F 10/13/18 12:41 Pulse 93 10/13/18 12:41 Resp 18 10/13/18 12:41 BP 125/72 10/13/18 12:41 Pulse Ox 96 10/13/18 12:41 Back Pain Course/Dx - Differential Dx/Diagnosis Differential Diagnosis/HQI/PQRI: Arthritis, Compressive Cord Syndrome, Herniated Disc, Renal Colic, Strain, Sprain Provider Diagnosis: Degenerative disc disease, lumbar, Spinal stenosis of lumbar region Discharge - Discharge Plan Condition: Stable Disposition: HOME Patient Education Materials: Degenerative Disc Disease (ED) Referrals: Rafiq Hwang MD [Medical Doctor] - 2 Days Casandra Dixon MD [Primary Care Provider] - 2 Days Trina Cornejo Ae RN [Registered Nurse] - 2 Days Additional Instructions: 1- Please start taking the Gabapentin PO that was prescribe by your PCP 1 week ago. This medication will help you with the pain 2- Wear a back support. Avoid strenuous exercise of heavy lifting. Rest 3- Please f/u your appt with your new PCP at [facility] for further evalaution and treatment on your Spinal stenosis and Degenerative disc disease 4- You can also call Spinal Nurse Navigator: Kaylynn Cornejo: [phone] for further management of your Degenerative disc disease and Spinal stenosis.. 5- Urine was positive for Leukoesteraces. Urine was sent to lab to confirm it there is ans infection., You will get a call from us if there is any abnormality. Increase fluid intake and rest. - Billing Disposition and Condition Condition: STABLE Disposition: Home
== END 2018-10-13 14:40 | disposition home or self-care (01) ==
LOC: UCEAST 12:02
DX: M51.36 Other intervertebral disc degeneration, lumbar region (principal); M48.061 Spinal stenosis, lumbar region without neurogenic claudication; Z91.041 Radiographic dye allergy status
CPT/HCPCS: 81003; 87086; 99211; G0463

== ENCOUNTER 2018-10-21 09:28 | Emergency (ER) | payer MEDICARE, BC ==
--- NOTE | 2018-10-21 09:55 | ED ---
Back Pain - HPI Summary HPI Summary: This patient is a 78 year old M brought in by ambulance to [facility] with a chief complaint of chronic low back pain since a few weeks ago. The patient notes that the pain radiates down his legs. The patient rates the pain 8/10 in severity. Symptoms aggravated by movement. Symptoms alleviated by nothing. Patient reports difficulty ambulating secondary to pain and constipation. Patient denies dysuria or incontinence. Patient notes he had been visiting the pain clinic but notes the pain has not been alleviated. Patient has hx of HTN and previously fractured his vertebrae. The patient lives at home with his . - History of Current Complaint Stated Complaint: BACK PAIN Time Seen by Provider: 10/21/18 09:31 Hx Obtained From: Patient Onset/Duration: Gradual Onset, Lasting Weeks, Still Present Onset/Duration: Started Weeks Ago Timing: Constant, Lasting Weeks Back Pain Location: Is Discrete @ - lower back, Radiates To - bilateral legs Severity Initially: Moderate Severity Currently: Moderate Pain Intensity: 8 Pain Scale Used: 0-10 Numeric Aggravating Symptom(s): Movement Alleviating Symptom(s): Nothing Associated Signs And Symptoms: Positive: Pain with Weight Bearing. Negative: Bladder Incontinence, Bowel Incontinence - Allergies/Home Medications Allergies/Adverse Reactions: Allergies Allergy/AdvReac Type Severity Reaction Status Date / Time iodixanol [From exozet] Allergy Mild Hives Verified 10/13/18 12:40 Home Medications: Home Medications Gabapentin 300 mg PO TID 10/21/18 [History Confirmed 10/21/18] PMH/Surg Hx/FS Hx/Imm Hx Endocrine/Hematology History: Reports: Hx Anticoagulant Therapy, Hx Diabetes Denies: Hx Thyroid Disease Cardiovascular History: Reports: Hx Angina, Hx Cardiac Arrest, Hx Coronary Artery Disease, Hx Deep Vein Thrombosis, Hx Hypertension Denies: Hx Pacemaker/ICD Respiratory History: Denies: Hx Asthma, Hx Chronic Obstructive Pulmonary Disease (COPD) GI History: Reports: Other GI Disorders - POLYP History: Denies: Hx Renal Disease Musculoskeletal History: Reports: Other Musculoskeletal History - HIP REPLACEMENT, NECK INJURY Denies: Hx Arthritis, Hx Osteoporosis Sensory History: Reports: Hx Contacts or Glasses, Hx Vision Problem Denies: Hx Hearing Aid Opthamlomology History: Reports: Hx Contacts or Glasses, Hx Vision Problem Neurological History: Reports: Other Neuro Impairments/Disorders - PAIN CLINIC PT Denies: Hx Dementia, Hx Seizures Psychiatric History: Denies: Hx Anxiety, Hx Depression, Hx Panic Disorder, Hx Substance Abuse - Surgical History Surgery Procedure, Year, and Place: 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 CATARACTS WITH LENS TRANSPLANT;. RONAK FILTER SURGERY( 1.5 T ONLY);. PROSTATE;. BILATERAL HIPS REPLACEMENT;. 2 KNEE SURGERYS;. RIGHT ARM (UMBRELLA) FOR CLOT, HEART CATHS/ANGIOS (NO STENTS); Hx Anesthesia Reactions: No - Immunization History Date of Tetanus Vaccine: Unknown Date of Influenza Vaccine: Fall 2014 Infectious Disease History: No Infectious Disease History: Reports: Hx of Known/Suspected MRSA Denies: Hx Clostridium Difficile, Hx Hepatitis, Hx Human Immunodeficiency Virus (HIV), Hx Shingles, Hx Tuberculosis, Traveled Outside the [place] in Last 30 Days - Family History Known Family History: Negative: Other - Cancer - Social History Lives: With Family Alcohol Use: None Hx Substance Use: No Substance Use Type: Reports: None Hx Tobacco Use: No Smoking Status (MU): Never Smoked Tobacco Have You Smoked in the Last Year: No Review of Systems Negative: Fever Negative: Epistaxis Negative: Cough Positive: Other - constipation Musculoskeletal: Other - lower back pain All Other Systems Reviewed And Are Negative: Yes Physical Exam - Summary Physical Exam Summary: Appearance: The patient is well-nourished in no acute distress and in no acute pain. Skin: The skin is warm and dry and skin color reflects adequate perfusion. HEENT: The head is normocephalic and atraumatic. The pupils are equal and reactive. The conjunctivae are clear and without drainage. Nares are patent and without drainage. Mouth reveals moist mucous membranes and the throat is without erythema and exudate. The external ears are intact. The ear canals are patent and without drainage. The tympanic membranes are intact. Neck: The neck is supple with full range of motion and non-tender. There are no carotid bruits. There is no neck vein distension. Respiratory: Chest is non-tender. Lungs are clear to auscultation and breath sounds are symmetrical and equal. Cardiovascular: Heart is regular rate and rhythm. There is no murmur or rub auscultated. There is no peripheral edema and pulses are symmetrical and equal. Abdomen: The abdomen is soft and non-tender. There are normal bowel sounds heard in all four quadrants and there is no organomegaly palpated. Musculoskeletal: There is no back tenderness noted. Extremities are non-tender with full range of motion. There is good capillary refill. There is no peripheral edema or calf tenderness elicited. Straight leg raises are positive bilaterally at five degrees. Normal reflexes and normal strength. Neurological: Patient is alert and oriented to person, place and time. The patient has symmetrical motor strength in all four extremities. Cranial nerves are grossly intact. Deep tendon reflexes are symmetrical and equal in all four extremities. Psychiatric: The patient has an appropriate affect and does not exhibit any anxiety or depression. Triage Information Reviewed: Yes Vital Signs On Initial Exam: Initial Vitals Temp Pulse Resp BP Pulse Ox 98 F 82 16 166/94 100 10/21/18 09:31 10/21/18 09:31 10/21/18 09:31 10/21/18 09:31 10/21/18 09:31 Vital Signs Reviewed: Yes Diagnostics - Vital Signs Vital Signs Temp Pulse Resp BP Pulse Ox 10/21/18 09:31 98 F 82 16 166/94 100 - Laboratory Result Diagrams: 10/21/18 10:05 10/21/18 10:05 Lab Statement: Any lab studies that have been ordered have been reviewed, and results considered in the medical decision making process. Back Pain Course/Dx - Course Course Of Treatment: Mr. Strickland re-presented with continued back pain. He has recently been found to have a compression fracture of L2 and has been being treated with gabapentin and [place] 01/12/25 every 6 hours. He is also receiving treatment for the constipation that secondary to the above. He was doing okay yesterday but today he finds it very painful to try to make any movement. He was nontoxic in appearance and his vitals are stable but he was clearly tender to any range of motion of his low back. The patient is thinking that he needs to be admitted to the hospital but does not want to be admitted to this hospital because his son wants him at [facility]. He tried to call an ambulance for transfer down to [facility] but they wanted to charge him $ 800. My recommendation would be that we try to get control of his pain and if we get him some mobility he can be discharged and then choose whether or not I try to increase his medications or change them for continued outpatient treatment whether he can then ride in his son's car down to [facility]. He was given IM Ativan and ketorolac here in the emergency department and got significant relief his pain was able to get up and walk and is discharged in stable condition. I offered to change his medications as an outpatient. He is going to ride in the car down to [facility]. - Diagnoses Provider Diagnoses: Acute exacerbation of chronic low back pain Discharge - Sign-Out/Discharge Documenting (check all that apply): Patient Departure - discharge home Patient Received Moderate/Deep Sedation with Procedure: No - Discharge Plan Condition: Stable Disposition: HOME - Billing Disposition and Condition Condition: STABLE Disposition: Home - Attestation Statements Document Initiated by Scribe: Yes Documenting Scribe: Izabela Moulton Provider For Whom Roosevelte is Documenting (Include Credential): John Sy MD Scribe Attestation: Izabela Hatfield, scribed for John Sy MD on 10/21/18 at 1152. Scribe Documentation Reviewed: Yes Provider Attestation: The documentation as recorded by the scribeIzabela accurately reflects the service I personally performed and the decisions made by me, John Sy MD Status of Scribe Document: Viewed
[2018-10-21] MEDS ORDERED: LORazepam INJ* 2 MG/ML 1 ML VIAL IM ONE (09:59)
[2018-10-21] MEDS ORDERED: Ketorolac INJ* 30 MG/ML 1 ML VIAL IM ONE (09:59)
[2018-10-21 10:30] LABS: ABS Basophils 0 10^3/ul (0-0.2); ABS Eosinophils 0.1 10^3/ul (0-0.6); ABS Lymphocytes 1.7 10^3/ul (1.0-4.8); ABS Monocytes 0.5 10^3/ul (0-0.8); ABS Neutrophils 4.3 10^3/ul (1.5-7.7); ABS Nucleated RBC 0 10^3/ul; Eosinophil % 0.9 %; Hematocrit 39 % (42-52); Hemoglobin 13.2 g/dl (14.0-18.0); Lymphocyte % 25.9 %; Mean Corpuscular HGB Conc 34 g/dl (31-36); Mean Corpuscular Hemoglobin 32 pg (27-31); Mean Corpuscular Volume 95 fL (80-94); Nucleated Red Blood Cells % 0; Platelet Count 202 10^3/ul (150-450); Red Blood Count 4.12 10^6/ul (4.00-5.40); Red Cell Distribution Width 15 % (10.5-15); White Blood Count 6.6 10^3/ul (3.5-10.8)
[2018-10-21 10:34] LABS: INR 2.33 (0.77-1.02)
[2018-10-21 10:46] LABS: Albumin 3.9 g/dL (3.2-5.2); Albumin/Globulin Ratio 1.3 (1-3); BUN/Creatinine Ratio 34.9 (8-20); C Reactive Protein 16.23 mg/L (<8.01); Calcium 9.4 mg/dL (8.6-10.3); EGFR African American 148.7 (>60); EGFR Non-African American 122.9 (>60); Globulin 3.1 g/dL (2-4); Potassium 4.8 mmol/L (3.5-5.0); Total Bilirubin 0.8 mg/dL (0.2-1.0)
[2018-10-21 12:54] VITALS: BP 100/64
== END 2018-10-21 12:53 | disposition home or self-care (01) ==
LOC: ED 09:28
DX: M54.5 Low back pain (principal); G89.29 Other chronic pain; I10 Essential (primary) hypertension; Z79.01 Long term (current) use of anticoagulants; E11.8 Type 2 diabetes mellitus with unspecified complications
CPT/HCPCS: 36415; 80053; 85025; 85610; 86140; 96372; 99283; J1885; J2060

== ENCOUNTER 2018-10-23 17:20 | Emergency (ER) | payer MEDICARE, BC ==
[2018-10-23] MEDS ORDERED: Orphenadrine Citrate IV* 30 MG/ML 2 ML VIAL IV ONE (18:05)
[2018-10-23] MEDS ORDERED: Dexamethasone IV* 4 MG/ML 1 ML (4 MG) IV SLOW PU ONE (18:05)
[2018-10-23 18:36] LABS: ABS Basophils 0 10^3/ul (0-0.2); ABS Eosinophils 0.1 10^3/ul (0-0.6); ABS Lymphocytes 1.4 10^3/ul (1.0-4.8); ABS Monocytes 0.6 10^3/ul (0-0.8); ABS Neutrophils 5.2 10^3/ul (1.5-7.7); ABS Nucleated RBC 0 10^3/ul; Eosinophil % 0.8 %; Hematocrit 40 % (42-52); Hemoglobin 13.2 g/dl (14.0-18.0); Lymphocyte % 19.1 %; Mean Corpuscular HGB Conc 33 g/dl (31-36); Mean Corpuscular Hemoglobin 32 pg (27-31); Mean Corpuscular Volume 95 fL (80-94); Mean Platelet Volume 7.7 fL (7.4-10.4); Nucleated Red Blood Cells % 0; Platelet Count 222 10^3/ul (150-450); Red Blood Count 4.17 10^6/ul (4.00-5.40); Red Cell Distribution Width 14 % (10.5-15); White Blood Count 7.3 10^3/ul (3.5-10.8)
[2018-10-23] MEDS ORDERED: Morphine VIAL* 10 MG/ML 1 ML VIAL IM ONE (18:36)
[2018-10-23 18:46] LABS: Albumin 3.8 g/dL (3.2-5.2); Albumin/Globulin Ratio 1.3 (1-3); BUN/Creatinine Ratio 31.6 (8-20); C Reactive Protein 8.33 mg/L (<8.01); Calcium 9.4 mg/dL (8.6-10.3); EGFR African American 114.5 (>60); EGFR Non-African American 94.6 (>60); Globulin 2.9 g/dL (2-4); Potassium 4.6 mmol/L (3.5-5.0); Total Bilirubin 0.7 mg/dL (0.2-1.0); Total Protein 6.7 g/dL (6.4-8.9)
[2018-10-23 19:06] LABS: INR 2.36 (0.77-1.02)
--- NOTE | 2018-10-23 19:06 | ED ---
Back Pain - HPI Summary HPI Summary: 78-year-old male presents with acute on chronic back pain for the past couple days. He denies any injury. He states his pain starts in the back and radiates down bilateral legs. He admits to numbness and tingling. He states the pain makes it difficult to ambulate. he states he is unable to get in and out of his shower. He denies any urinary symptoms. No nausea vomiting or bowel pain. No chest pain or shortness breath. he denies any fever. He has history of valve replacement at [facility] and is on coumadin. - History of Current Complaint Chief Complaint: EDBackInjuryPain Stated Complaint: BACK PAIN Time Seen by Provider: 10/23/18 17:43 Pain Intensity: 10 - Allergies/Home Medications Allergies/Adverse Reactions: Allergies Allergy/AdvReac Type Severity Reaction Status Date / Time iodixanol [From Visipaque] Allergy Mild Hives Verified 10/13/18 12:40 PMH/Surg Hx/FS Hx/Imm Hx Endocrine/Hematology History: Reports: Hx Anticoagulant Therapy, Hx Diabetes Denies: Hx Thyroid Disease Cardiovascular History: Reports: Hx Angina, Hx Cardiac Arrest, Hx Coronary Artery Disease, Hx Deep Vein Thrombosis, Hx Hypertension Denies: Hx Pacemaker/ICD Respiratory History: Denies: Hx Asthma, Hx Chronic Obstructive Pulmonary Disease (COPD) GI History: Reports: Other GI Disorders - POLYP History: Denies: Hx Renal Disease Musculoskeletal History: Reports: Other Musculoskeletal History - HIP REPLACEMENT, NECK INJURY Denies: Hx Arthritis, Hx Osteoporosis Sensory History: Reports: Hx Contacts or Glasses, Hx Vision Problem Denies: Hx Hearing Aid Opthamlomology History: Reports: Hx Contacts or Glasses, Hx Vision Problem Neurological History: Reports: Other Neuro Impairments/Disorders - PAIN CLINIC PT Denies: Hx Dementia, Hx Seizures Psychiatric History: Denies: Hx Anxiety, Hx Depression, Hx Panic Disorder, Hx Substance Abuse - Surgical History Surgery Procedure, Year, and Place: 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 CATARACTS WITH LENS TRANSPLANT;. RONAK FILTER SURGERY( 1.5 T ONLY);. PROSTATE;. BILATERAL HIPS REPLACEMENT;. 2 KNEE SURGERYS;. RIGHT ARM (UMBRELLA) FOR CLOT, HEART CATHS/ANGIOS (NO STENTS); Hx Anesthesia Reactions: No - Immunization History Date of Tetanus Vaccine: Unknown Date of Influenza Vaccine: Fall 2014 Infectious Disease History: No Infectious Disease History: Reports: Hx of Known/Suspected MRSA Denies: Hx Clostridium Difficile, Hx Hepatitis, Hx Human Immunodeficiency Virus (HIV), Hx Shingles, Hx Tuberculosis, Traveled Outside the [place] in Last 30 Days - Family History Known Family History: Negative: Other - Cancer - Social History Alcohol Use: None Hx Substance Use: No Substance Use Type: Reports: None Hx Tobacco Use: No Smoking Status (MU): Never Smoked Tobacco Have You Smoked in the Last Year: No Review of Systems Negative: Fever Negative: Chest Pain Negative: Shortness Of Breath Positive: Myalgia - back pain All Other Systems Reviewed And Are Negative: Yes Physical Exam Triage Information Reviewed: Yes Vital Signs On Initial Exam: Initial Vitals Temp Pulse Resp BP Pulse Ox 98 F 91 18 100/61 100 10/23/18 17:21 10/23/18 17:21 10/23/18 17:21 10/23/18 17:21 10/23/18 17:21 Vital Signs Reviewed: Yes Appearance: Positive: Well-Appearing Skin: Positive: Warm, Dry Head/Face: Positive: Normal Head/Face Inspection Eyes: Positive: Normal, Conjunctiva Clear ENT: Positive: Pharynx normal Respiratory/Lung Sounds: Positive: Clear to Auscultation, Breath Sounds Present Cardiovascular: Positive: Normal, RRR Musculoskeletal: Positive: Limited @ - back, Other - tenderness lower back, positive SLR, good pulses, sensation grossly intact Neurological: Positive: Babinski Bilateral - normal Psychiatric: Positive: Normal Diagnostics - Vital Signs Vital Signs Temp Pulse Resp BP Pulse Ox 10/23/18 17:21 98 F 91 18 100/61 100 - Laboratory Lab Results: Lab Results 10/23/18 10/23/18 Range/Units 18:20 18:20 WBC 7.3 (3.5-10.8) 10^3/ul RBC 4.17 (4.00-5.40) 10^6/ul Hgb 13.2 L (14.0-18.0) g/dl Hct 40 L (42-52) % MCV 95 H (80-94) fL MCH 32 H (27-31) pg MCHC 33 (31-36) g/dl RDW 14 (10.5-15) % Plt Count 222 (150-450) 10^3/ul MPV 7.7 (7.4-10.4) fL Neut % (Auto) 71.1 % Lymph % (Auto) 19.1 % Izard % (Auto) 8.5 % Eos % (Auto) 0.8 % Baso % (Auto) 0.5 % Absolute Neuts (auto) 5.2 (1.5-7.7) 10^3/ul Absolute Lymphs (auto) 1.4 (1.0-4.8) 10^3/ul Absolute Monos (auto) 0.6 (0-0.8) 10^3/ul Absolute Eos (auto) 0.1 (0-0.6) 10^3/ul Absolute Basos (auto) 0 (0-0.2) 10^3/ul Absolute Nucleated RBC 0 10^3/ul Nucleated RBC % 0 Sodium 136 (135-145) mmol/L Potassium 4.6 (3.5-5.0) mmol/L Chloride 102 (101-111) mmol/L Carbon Dioxide 27 (22-32) mmol/L Anion Gap 7 (2-11) mmol/L BUN 25 H (6-24) mg/dL Creatinine 0.79 (0.67-1.17) mg/dL Est GFR ( Amer) 114.5 (>60) Est GFR (Non-Af Amer) 94.6 (>60) BUN/Creatinine Ratio 31.6 H (8-20) Glucose 89 (70-100) mg/dL Calcium 9.4 (8.6-10.3) mg/dL Total Bilirubin 0.70 (0.2-1.0) mg/dL AST 21 (13-39) U/L ALT 13 (7-52) U/L Alkaline Phosphatase 66 (34-104) U/L C-Reactive Protein 8.33 H (<8.01) mg/L Total Protein 6.7 (6.4-8.9) g/dL Albumin 3.8 (3.2-5.2) g/dL Globulin 2.9 (2-4) g/dL Albumin/Globulin Ratio 1.3 (1-3) Result Diagrams: 10/23/18 18:20 10/23/18 18:20 Lab Statement: Any lab studies that have been ordered have been reviewed, and results considered in the medical decision making process. Re-Evaluation - Re-Evaluation First Eval Comment: patient states does not want work up here would like to be transferred. discussed can give pain medication and not improving can potential admit but patient refused. patient is A&ox3 and is able to make this decision. also spoke with who agrees with decision Back Pain Course/Dx - Course Course Of Treatment: 78-year-old male presents with back pain for the past couple days. He states he has history of back pain similar location. Nothing new about this pain is just more extreme than normal. Some tingling and numbness down the legs. States having difficulty walking due to the pain. Has tried is normal oxycodone with minimal relief. No urinary symptoms or fevers. On exam tenderness lower back. Positive straight leg raise. Neurovascularly intact. explained that will try different pain medication and if unable to ambulate afterwards was going to admit the patient. Patient initially agrees with this plan. Patient then states wants to be trasferred to [facility]. Discuss options with Dr. Maravilla says that we would have to to a facility transfer per patient request as states can not get into a private car. Discussed with patient that may be left with an ambulance bill patient is okay with that. offered pain medication will in ED and patient declined. dr curiel from [facility] accepts - Diagnoses Differential Diagnosis/HQI/PQRI: Positive: Fracture, Herniated Disc, Strain Provider Diagnoses: Back pain Discharge - Sign-Out/Discharge Documenting (check all that apply): Patient Departure Patient Received Moderate/Deep Sedation with Procedure: No - Discharge Plan Condition: Stable Disposition: TRANS HIGHER LVL OF CARE FAC Referrals: Pb Sanchez MD [Primary Care Provider] - - Billing Disposition and Condition Condition: STABLE Disposition: Trans Higher Lvl of Care Fac
[2018-10-23 21:25] VITALS: BP 105/67
== END 2018-10-23 21:23 | disposition short-term general hospital (02) ==
LOC: ED 17:20
DX: M54.9 Dorsalgia, unspecified (principal); Z79.01 Long term (current) use of anticoagulants; R20.0 Anesthesia of skin
CPT/HCPCS: 36415; 80053; 85025; 85610; 86140; 99283